=== PATIENT | female | born 1970 | race Caucasian/White ===

== ENCOUNTER 2016-08-08 05:19 | Day surgery (SDC) | payer OTHER ==
[~2016-08-08] VITALS: Ht 147.3 cm; Wt 63.1 kg
[~2016-08-08 05:19] MED LIST: CARI350T29 PO; CHOL50009 PO; GABA300C16 PO; HYDR-3498 PO; MELO-109 PO; METO10TA92 PO; PANT40TA3 PO; [UNRECOGNIZED DRUG - CODE] PO
[2016-08-08 06:26] VITALS: Ht 147.3 cm; Wt 63.1 kg
[2016-08-08 07:19] VITALS: BP 113/80; PULSE 68; RESP 20
[2016-08-08] MEDS ORDERED: FENTAnyl 50 MCG/ML VIAL ONE (07:38)
[2016-08-08] MEDS ORDERED: MIDAZOLAM 1 MG/ML 2 ML INJ ONE ×2 (07:38)
--- NOTE | 2016-08-08 07:58 | GILP ---
DATE OF PROCEDURE: NAME OF PROCEDURE: Esophagogastroduodenoscopy and biopsy. SURGEON: Alexander Spann MD PREOPERATIVE DIAGNOSES: 1. Abdominal pain. 2. Chronic heartburn. POSTOPERATIVE DIAGNOSES: 1. Hiatal hernia. 2. Gastroesophageal reflux disease. 3. Gastritis with erosions. 4. Gastric mucosal biopsies were taken for Helicobacter pylori test. INDICATION FOR THE PROCEDURE: Ms. Siena Vo is a 46-year-old female patient who had upper abdomi nal pain and chronic heartburn, not responding to therapy. The patient was scheduled for endoscopic examination for further evaluation. The procedure and possible complications are well explained to the patient. The patient understood and consented to the procedure. DESCRIPTION OF PROCEDURE: Under the influence of fentanyl and Versed, the gastroscope was carefully introduced into the esophagus, and under direct vision, it was advanced to the stomach and through the pylorus into the duodenal bulb and descending duodenum. FINDINGS: ESOPHAGUS: The patient had hiatal hernia and gastroesophageal reflux disease. STOMACH: She had gastritis with erosions. Gastric mucosal biopsies were taken for H pylori test. DUODENUM: Normal. The patient tolerated the procedure very well and there was no complication from the procedure. At the end of the procedure, she was awake with stable vital signs, and she was discharged home to the care of her family. IMPRESSION: 1. Hiatal hernia. 2. Gastroesophageal reflux disease. 3. Gastritis with erosions. 4. Gastric mucosal biopsies were taken for Helicobacter pylori test. PLAN: 1. Pantoprazole 40 mg p.o. every morning. 2. Zantac 300 mg p.o. at bedtime. 3. Await H pylori test report. Dictated By: ALEXANDER SEWELL/FRIEDA Conf#: [id number] DID#: [id number]
[2016-08-08 08:02] VITALS: BP 99/60; RESP 18
== END 2016-08-08 09:17 | disposition home or self-care (01) ==
LOC: GIL 05:19
PROVIDERS: ATTEND Internal Medicine Gastroenterology
DX: K44.9 Diaphragmatic hernia without obstruction or gangrene (principal); K21.9 Gastro-esophageal reflux disease without esophagitis; K29.60 Other gastritis without bleeding
CPT/HCPCS: 43239; 84703; 87081; J2250; J3010; Z7610

== ENCOUNTER → 2016-08-18 | Outpatient (CLI) | payer OTHER ==
[~2016-08-18] MED LIST changes: -CARI350T29 PO; -HYDR-3498 PO; -METO10TA92 PO; -[UNRECOGNIZED DRUG - CODE] PO
--- NOTE | 2016-08-18 14:31 | RADRPT ---
PROCEDURE: Gastric emptying scan CLINICAL INDICATION: 46 -year-old patient with hiatal hernia, abdominal pain, nausea and vomiting. TECHNIQUE: Following the oral administration of 1.1 mCi of Tc-99m sulfur colloid, labeled to a luly id meal, gastric emptying study was obtained up to 70 minutes post administration of the radiopharma ceutical. COMPARISON: No prior studies. FINDINGS: The stomach is well visualized. The small intestines are identified. There is evidence of normal gastric emptying rate from the start of the study with estimated T1/2 ti me of 81 minutes (normal range is 30 - 90 minutes). There is no evidence of increased activity in the chest to suggest the presence of gastroesophageal reflux. IMPRESSION: Normal gastric emptying rate . RPTAT: HH .Jeanine Marrero MD, MD Date Time Electronically viewed and signed by .Jeanine Marrero MD, on 08/18/2016 14:30 .L/
== END | disposition home or self-care (01) ==
LOC: NUC 10:33
PROVIDERS: ATTEND Surgery Surgical Oncology
DX: K44.9 Diaphragmatic hernia without obstruction or gangrene (principal)
CPT/HCPCS: 78264; A9541

== ENCOUNTER 2016-12-21 10:10 | Inpatient (IN) | payer OTHER ==
[2016-12-20 15:14] VITALS: BMI 29.0
[2016-12-21] VITALS (22 sets, daily range): BP systolic 99–127; BP diastolic 60–84; PULSE 71–95; RESP 12–20; Ht 147.3 cm; Wt 63.0 kg
[~2016-12-21] VITALS: Ht 147.3 cm; Wt 63.0 kg
[~2016-12-21 10:10] MED LIST changes: -MELO-109 PO; +MELO-216 PO; +ROCURONIUM 50 MG INJ ONE
[2016-12-21] MEDS ORDERED: PANT40TA3 PO (10:51)
[2016-12-21] MEDS ORDERED: GABA-526 PO (10:51)
[2016-12-21] MEDS ORDERED: MELO-210 PO (10:51)
[2016-12-21] MEDS ORDERED: NORE-122 PO (10:52)
[2016-12-21] MEDS ORDERED: BUPIVACAINE 0.25% (MPF) 30 ML INJ ONE (12:23)
[2016-12-21] MEDS ORDERED: PROPOFOL 20 ML ONE (13:15)
[2016-12-21] MEDS ORDERED: GLYCOPYRROLATE 0.4 MG INJ ONE ×2 (13:15→14:48)
[2016-12-21] MEDS ORDERED: LIDOCAINE 2% (SDV) 5 ML INJ ONE (13:15)
[2016-12-21] MEDS ORDERED: NEOSTIGMINE 3 MG/3 ML SYRINGE ONE (13:15)
[2016-12-21] MEDS ORDERED: SUCCINYLCHOLINE CHLORIDE 100 MG/5 ML SYG IV ONE (13:15)
[2016-12-21] MEDS ORDERED: ROCURONIUM 50 MG INJ ONE (13:15)
[2016-12-21] MEDS ORDERED: MEPERIDINE 100 MG INJ ONE (13:16)
[2016-12-21] MEDS ORDERED: MEPERIDINE 25 MG INJ IV PRN (13:30)
[2016-12-21] MEDS ORDERED: FENTAnyl 50 MCG/ML VIAL IV PRN ×2 (13:30)
[2016-12-21] MEDS ORDERED: HYDROmorphONE (0.2 MG/ML) 10ML SYG IV PRN ×2 (13:30)
[2016-12-21] MEDS ORDERED: ONDANSETRON 4 MG INJ IV PRN (13:30)
[2016-12-21] MEDS ORDERED: hydrALAzine 20 MG INJ IV PRN (13:30)
[2016-12-21] MEDS ORDERED: METOCLOPRAMIDE 10 MG INJ IV PRN (13:30)
[2016-12-21] MEDS ORDERED: OXYCODONE/ACETAMINOPHEN (5/325) TAB PO PRN ×2 (13:30)
[2016-12-21] MEDS ORDERED: MIDAZOLAM 1 MG/ML 2 ML INJ IV PRN (13:30)
[2016-12-21] MEDS ORDERED: EPHEDrine SULFATE 50 MG/5 ML SYG IV PRN (13:30)
[2016-12-21] MEDS ORDERED: LABETALOL HCL 20MG INJ IV PRN (13:30)
[2016-12-21] MEDS ORDERED: DIPHENHYDRAMINE 50 MG INJ IV PRN (13:30)
[2016-12-21] MEDS ORDERED: POLYMYXIN/BACITRACIN 1L IRRIG ONE (14:41)
[2016-12-21] MEDS ORDERED: CEFAZOLIN 1 GM INJ ONE (14:48)
[2016-12-21] MEDS ORDERED: METOCLOPRAMIDE 10 MG INJ ONE (14:49)
[2016-12-21] MEDS ORDERED: ONDANSETRON 4 MG INJ ONE (14:49)
[2016-12-21] MEDS ORDERED: SOD CHLORIDE 0.9% 1,000 ML IV SCH (15:26)
[2016-12-21] MEDS ORDERED: SUGAMMADEX SODIUM 200 MG/2 ML VIAL IV ONE (15:32)
--- NOTE | 2016-12-21 15:41 | OPR ---
Date/Time of Note Date/Time of Note DATE: 12/21/16 TIME: 15:29 Operative Report Procedure Date: Dec 21, 2016 Preoperative Diagnosis recalcitrant GERD not amenable to PPI therapy Postoperative Diagnosis same Operation Performed 1. laparoscopic 360 fundoplication 2. intraabdominal implantation of biologic matrix mesh 3. therapeutic injection of subcutaneous marcaine cpt code 22169 4. laparoscopic lysis of adhesions Surgeon see signature line Anesthesia Type: general Estimated Blood Loss: 10 - 50 ml's Specimen: none Grafts/Implants: none Complications: no Indications This is a 46-year-old female with recalcitrant GERD that is not amenable to PPI therapy. She underwent studies confirming GERD with a lower esophageal sphincter that is not functioning properly. She has had prior laparoscopic diaphragmatic hernia surgery. She is brought to the OR for a laparoscopic fundoplication with mesh repair. Risks alternatives benefits and percent were discussed the patient. Potential complications include but not limited to bleeding infection chronic pain need for reoperation and possibly were discussed the patient. Patient expresses understanding and consents to the operation. Procedure Description Patient was taken to the OR and prepped and draped in the usual sterile fashion. Surgical timeout was performed. IV antibiotics were given. Left upper periumbilical transverse incision is made with a 15 blade. Using a 12 mm optical trocar optical entry is performed. Pneumoperitoneum is established. Right midclavicular subcostal 5 mm trocar was placed under direct visualization. Left midclavicular subcostal 12 mm optical trocar was placed under direct visualization left upper flank 5 mm optical trocar was placed under direct visualization. midEpigastric 5 mm optical trocar was placed under direct visualization. Using the mid epigastric 5 mm optical trocar position the trocar was removed and a snake liver retractor was placed for visualization. Initial dissection was performed by starting at pars flaccida with harmonic laparoscopic kush. Dissection was taken up to the caudate lobe and more medially to the right brianda. Due to prior intra-abdominal laparoscopic surgery in this region laparoscopic lysis of adhesions was performed for a significant amount of time to allow mobilization of the right and left brianda. The short gastrics were divided using laparoscopic harmonic kush. Creation of the retroesophageal space was performed. Gerry loop was encircled around the esophagus. A 56 bougie was then placed into the esophagus under direct visualization. The fundus was then wrapped around the esophagus posteriorly and shoeshine maneuver was performed. There was no tension. The plication was performed using 3-0 PDS by fixing the fundus to the esophagus to the other side of the fundus. 3-0 silk was used in interrupted fashion to reinforce the lower esophageal sphincter with proximal and distal sutures to the 3-0 PDS. A cell mesh was then placed against the brianda anteriorly with interrupted 2-0 Ethibond for reinforcement. There is good hemostasis of the surgical site. Ports removed under direct visualization. Skin was closed using skin evan. Therapeutic subcu Marcaine was injected throughout the port sites. Dressings were applied. Tuan VIRAMONTES Dec 21, 2016 15:41
[2016-12-21] MEDS: FENTAnyl 50 MCG/ML VIAL IV PRN ×4 (15:52→16:18)
[2016-12-21] MEDS: HYDROmorphONE (0.2 MG/ML) 10ML SYG IV PRN ×2 (16:48→17:05)
[2016-12-21] MEDS ORDERED: D5-NS + KCL 20 MEQ 1,000 ML IV SCH (17:00)
[2016-12-21] MEDS ORDERED: D5W-0.45 NACL + KCL 20 MEQ 1,000 ML IV ONE (17:16)
[2016-12-21] MEDS: D5W-0.45 NACL + KCL 20 MEQ 1,000 ML IV SCH (17:54)
[2016-12-21] MEDS: CEFAZOLIN 2 GM/50 ML (PMX) 50 ML IVPB SCH (18:12)
--- NOTE | 2016-12-21 18:22 | HP ---
DATE OF ADMISSION: 12/21/2016 HISTORY OF PRESENT ILLNESS: The patient is a 46-year-old female with persistent GERD, not responding to medical therapy. 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 The patient also with history of prior laparoscopic diaphragmatic surgery repair. The patient was evaluated by Dr. Aguilera in general surgery consultation, and patient was admitted to the hospital and underwent laparoscopic fundoplication with mesh repair. Postoperatively, the patient experienced significant pain, and patient will be admitted for further evaluation and management. PAST MEDICAL HISTORY: Positive for recalcitrant GERD and neuropathy. The patient denies having any other chronic conditions. PAST SURGICAL HISTORY: Status post hernia repair. Status post cholecystectomy, status post right total knee replacement, and status post left shoulder surgery. FAMILY HISTORY: Noncontributory. SOCIAL HISTORY: The patient lives at home with family. Patient denies any alcohol use. Denies any tobacco use. Denies any illicit drug use. ALLERGIES: NO KNOWN ALLERGIES. MEDICATIONS: 1. Gabapentin. 2. Mobic. 3. Protonix. REVIEW OF SYSTEMS: A 12-point review of system is negative, unless mentioned in HPI. PHYSICAL EXAMINATION: GENERAL: Well-developed, well-nourished female, currently is awake and alert. VITAL SIGNS: Temperature 98.2, pulse 80, blood pressure 116/73, respiratory rate 14, and oxygen saturation 100 percent on room air. HEENT: Head is atraumatic and normocephalic. Pupils are equal, round, and reactive to light and accommodation. Oral mucosa is pink and moist. NECK: Supple. No cervical lymphadenopathy. No thyromegaly. CHEST: Lungs are clear bilaterally. There are no rhonchi or wheezes noted. CARDIOVASCULAR: Normal S1, S2. No murmurs, gallops, clicks, or rubs noted. ABDOMEN: Status post surgery with laparoscopic incisions. Bowel sounds are hypoactive. EXTREMITIES: No edema, clubbing, or cyanosis. Pulses are felt bilaterally 2+. SKIN: No rash or petechiae noted. NEUROLOGICAL: The patient is awake, alert, and oriented x4. No focal deficits are noted. The patient moves all extremities. LABORATORY DATA: Prior to surgery, CBC: White blood cells of 8.1, hemoglobin 13.1, hematocrit 37.7, platelets 299. Comprehensive metabolic panel, glucose 116. Sodium is 142, potassium 3.8, chloride 106, carbon dioxide 26, calcium 9.2. BUN is 10, creatinine 0.72. AST is 14, ALT 7. INR is 1.06. ASSESSMENT AND PLAN: 1. Recalcitrant gastroesophageal reflux disease, not amendable to proton pump inhibitor therapy. 2. Status post laparoscopic fundoplication. 3. Intra-abdominal implantation of biologic matrix mesh. Continue postoperative antibiotics. Continue morphine p.r.n. for pain. Zofran p.r.n. for nausea. Continue IV fluids. Keep patient NPO. Follow up surgical recommendation 4. Neuropathy. Will resume gabapentin when patient is able to take p.o. Continue sequential compression device for deep venous thrombosis prophylaxis. Monitor electrolytes. Further recommendations based on clinical course. Plan of care discussed with Dr. Henriquez. Dictated by Alena Camara NP Dictated By: Faizan Henriquez MD /eli/momo /Document#: [id number]
[2016-12-21 19:04] LABS: BASOPHILS % 0.2 % (0.0-2.0); HEMATOCRIT 37.1 % (37.0-47.0); HEMOGLOBIN 12.2 g/dl (12.0-16.0); LYMPHOCYTES # 1.6 10^3/ul (0.8-2.9); LYMPHOCYTES % 8.8 % (15.0-51.0); MEAN CORPUSCULAR HEMOGLOBIN 30.3 pg (29.0-33.0); MEAN CORPUSCULAR HGB CONC 32.9 g/dl (32.0-37.0); MEAN CORPUSCULAR VOLUME 92.3 fl (82.0-101.0); MEAN PLATELET VOLUME 10.5 fl (7.4-10.4); MONOCYTES % 5.7 % (0.0-11.0); NEUTROPHIL # 15.1 10^3/ul (1.6-7.5); NEUTROPHILS % 84.7 % (39.0-77.0); PLATELET COUNT 240 10^3/UL (140-415); RED BLOOD COUNT 4.02 10^6/ul (4.20-5.40); RED CELL DISTRIBUTION WIDTH 13.4 % (11.5-14.5); WHITE BLOOD COUNT 17.9 10^3/ul (4.8-10.8)
[2016-12-21 19:09] LABS: HOLD TRANSMISSIONS 1
[2016-12-21 19:30] LABS: ALBUMIN 3.9 g/dl (3.3-4.9); ALBUMIN/GLOBULIN RATIO 1.34; BILIRUBIN,INDIRECT 0.5 mg/dl (0-1.1); BILIRUBIN,TOTAL 0.5 mg/dl (0.2-1.3); TOTAL PROTEIN 6.8 g/dl (6.1-8.1)
[2016-12-21 19:34] LABS: CALCIUM 8.4 mg/dl (8.4-10.2); CREATININE 0.62 mg/dl (0.44-1.00); POTASSIUM 4.1 mmol/L (3.5-5.1)
[2016-12-21] MEDS: morphine 2 MG INJ IV PRN (20:35)
[2016-12-21] MEDS: ONDANSETRON 4 MG INJ IV PRN (21:41)
[2016-12-22] MEDS: morphine 2 MG INJ IV PRN ×3 (00:24→05:34)
[2016-12-22 00:25] VITALS: BP 120/70; PULSE 89; RESP 18
[2016-12-22] MEDS: CEFAZOLIN 2 GM/50 ML (PMX) 50 ML IVPB SCH ×2 (00:30→06:44)
[2016-12-22] MEDS: D5W-0.45 NACL + KCL 20 MEQ 1,000 ML IV SCH ×3 (03:36→23:43)
[2016-12-22 05:09] LABS: BASOPHILS % 0.2 % (0.0-2.0); EOSINOPHILS # 0.1 10^3/ul (0.0-0.5); EOSINOPHILS % 0.8 % (0.0-7.0); HEMATOCRIT 33.5 % (37.0-47.0); HEMOGLOBIN 11.2 g/dl (12.0-16.0); LYMPHOCYTES # 1.1 10^3/ul (0.8-2.9); LYMPHOCYTES % 7.5 % (15.0-51.0); MEAN CORPUSCULAR HEMOGLOBIN 30.4 pg (29.0-33.0); MEAN CORPUSCULAR HGB CONC 33.4 g/dl (32.0-37.0); MEAN CORPUSCULAR VOLUME 90.8 fl (82.0-101.0); MEAN PLATELET VOLUME 10.3 fl (7.4-10.4); MONOCYTE # 1.1 10^3/ul (0.3-0.9); MONOCYTES % 7.8 % (0.0-11.0); NEUTROPHIL # 11.8 10^3/ul (1.6-7.5); NEUTROPHILS % 83.3 % (39.0-77.0); PLATELET COUNT 217 10^3/UL (140-415); RED BLOOD COUNT 3.69 10^6/ul (4.20-5.40); RED CELL DISTRIBUTION WIDTH 13.3 % (11.5-14.5); WHITE BLOOD COUNT 14.2 10^3/ul (4.8-10.8)
[2016-12-22 06:18] LABS: ALBUMIN 3.5 g/dl (3.3-4.9); ALBUMIN/GLOBULIN RATIO 1.29; BILIRUBIN,INDIRECT 0.7 mg/dl (0-1.1); BILIRUBIN,TOTAL 0.7 mg/dl (0.2-1.3); CALCIUM 8.1 mg/dl (8.4-10.2); CREATININE 0.62 mg/dl (0.44-1.00); TOTAL PROTEIN 6.2 g/dl (6.1-8.1)
[2016-12-22] MEDS: DIPHENHYDRAMINE 50 MG INJ IV PRN ×2 (06:42→19:40)
--- NOTE | 2016-12-22 07:53 | PN ---
Date/Time of Note Date/Time of Note DATE: 12/22/16 TIME: 07:52 Assessment/Plan VTE Prophylaxis VTE Prophylaxis Intervention: SCD's Lines/Catheters IV Catheter Type (from Nrsg): Peripheral IV Urinary Cath still in place: Yes Reason Cath still needed: other (indicate) Assessment/Plan Chief Complaint/Hosp Course s/p lap colette fundoplication for recalcitrant GERD Problems: Assessment/Plan UGI today then if everything is ok start clears Subjective 24 Hr Interval Summary Free Text/Dictation doing well, no nausea no vomiting overnight Exam/Review of Systems Vital Signs Vitals Vital Signs Date Time Temp Pulse Resp B/P Pulse Ox O2 Delivery O2 Flow Rate FiO2 12/22/16 00:25 98.4 89 18 120/70 97 Room Air Intake and Output 12/21/16 12/21/16 12/22/16 15:00 23:00 07:00 Intake Total 1400 ml 910 ml Output Total 10 ml 1100 ml Balance 1390 ml -190 ml Exam c/d/i Results Result Diagram: 12/22/16 0431 12/22/16 0431 Results 24 hrs Laboratory Tests Test 12/21/16 18:12 12/22/16 04:31 White Blood Count 17.9 #H 14.2 #H Red Blood Count 4.02 L 3.69 L Hemoglobin 12.2 11.2 L Hematocrit 37.1 33.5 L Mean Corpuscular Volume 92.3 90.8 Mean Corpuscular Hemoglobin 30.3 30.4 Mean Corpuscular Hemoglobin Concent 32.9 33.4 Red Cell Distribution Width 13.4 13.3 Platelet Count 240 217 Mean Platelet Volume 10.5 #H 10.3 Neutrophils % 84.7 H 83.3 H Lymphocytes % 8.8 L 7.5 L Monocytes % 5.7 7.8 Eosinophils % 0.0 0.8 Basophils % 0.2 0.2 Nucleated Red Blood Cells % 0.0 0.0 Neutrophils # 15.1 H 11.8 H Lymphocytes # 1.6 1.1 Monocytes # 1.0 H 1.1 H Eosinophils # 0.0 0.1 Basophils # 0.0 0.0 Nucleated Red Blood Cells # 0.0 0.0 CBC Results Faxed/Phoned 1 *H Sodium Level 142 139 Potassium Level 4.1 4.0 Chloride Level 109 108 Carbon Dioxide Level 22 25 Anion Gap 15 10 # Blood Urea Nitrogen 10 6 L Creatinine 0.62 0.62 Glucose Level 96 146 # Calcium Level 8.4 8.1 L Total Bilirubin 0.5 0.7 Direct Bilirubin 0.00 0.00 Indirect Bilirubin 0.5 0.7 Aspartate Amino Transf (AST/SGOT) 130 H 93 H Alanine Aminotransferase (ALT/SGPT) 114 H 86 H Alkaline Phosphatase 59 44 Total Protein 6.8 6.2 Albumin 3.9 3.5 Globulin 2.90 2.70 Albumin/Globulin Ratio 1.34 1.29 Medications Medications Current Medications Cefazolin Sodium/ Dextrose (Ancef 2 Gm/50 ml (Pmx)) 50 ml @ 100 mls/hr Q8H IVPB Last administered on 12/22/16 06:44; Admin Dose 100 MLS/HR; Start at 15:30; Stop 12/22/16 at 15:29 Morphine Sulfate 2 mg 2 mg Q2H PRN IV PAIN LEVEL 6-10 Last administered on 12/22 05:34; Admin Dose 2 MG; Start 12/21/16 at 15:30 Potassium Chloride/Dextrose/ Sod Cl (D5-1/2ns + KCl 20 Meq) 1,000 ml @ 100 mls/ hr Q10H IV Last administered on 12/22/16 03:36; Admin Dose 100 MLS/HR; Start 12/21/16 at 17:00 Ondansetron HCl (Zofran Inj) 4 mg Q6H PRN IV NAUSEA AND/OR VOMITING Last administered on 12/21/16 21:41; Admin Dose 4 MG; Start 12/21/16 at 21:30 Diphenhydramine HCl (Benadryl) 25 mg Q6H PRN IV ITCHING Last administered on 06:42; Admin Dose 25 MG; Start 12/22/16 at 07:00 Tuan VIRAMONTES Dec 22, 2016 07:53
[2016-12-22 08:05] VITALS: BP 100/62; RESP 16
[2016-12-22] MEDS: HYDROmorphONE 1 MG/ML SYG IV PRN ×4 (08:47→21:28)
[2016-12-22] MEDS: ONDANSETRON 4 MG INJ IV PRN ×2 (08:51→14:41)
[2016-12-22] MEDS ORDERED: DIATR MEGLU/DIATRIZOATE SODIUM 120 ML BTL ONE (11:43)
--- NOTE | 2016-12-22 12:35 | RADRPT ---
PROCEDURE: Upper GI series. CLINICAL INDICATION: Recent surgery with Alyce fundoplication, evaluate abdominal pain, nausea an d vomiting TECHNIQUE: Gastroview was administered orally and several spot and overhead radiographs were obtai norma. 62 fluoroscopic images were obtained. Fluoroscopic time was 0.7 minutes. COMPARISON: No prior study is available for comparison. FINDINGS: Student Affairs Dean image of the abdomen demonstrates surgical clips in the upper variant. There is a nonspecific bowel gas pattern. The lung bases are clear. There is no evidence of aspiration. Esophageal motility is normal. There is no esophageal mass, ulcer, or stricture. Contrast courses beyond the GE junction into the stomach past the patients Alyce fundoplication wit hout difficulty. There is no evidence of high-grade stricture. There is no evidence of contrast leak . IMPRESSION: 1. The patient is status post Alyce fundoplication. No evidence of stricture or contrast leak. RPTAT: UU .Jluis Maldonado MD, MD Date Time Electronically viewed and signed by .Jluis Maldonado MD, on 12/22/2016 12:34 .K/
[2016-12-22 15:08] VITALS: BP 118/67; RESP 16
--- NOTE | 2016-12-22 18:46 | PN ---
Date/Time of Note Date/Time of Note DATE: 12/22/16 TIME: 18:40 Assessment/Plan VTE Prophylaxis VTE Prophylaxis Intervention: other Lines/Catheters IV Catheter Type (from Nrsg): Peripheral IV Urinary Cath still in place: Yes Reason Cath still needed: urinary retention Assessment/Plan Assessment/Plan 1. Recalcitrant gastroesophageal reflux disease, not amendable to proton pump inhibitor therapy. 2. Status post laparoscopic fundoplication. 3. Intra-abdominal implantation of biologic matrix mesh. - per surgery- clear liquid diet - Continue postoperative antibiotics, morphine p.r.n. for pain. - Zofran p.r.n. for nausea. Continue IV fluids. 4. Neuropathy. - cont gabapentin 5. Sequential compression device for deep venous thrombosis prophylaxis. Monitor electrolytes. Further recommendations based on clinical course. Plan of care discussed with Dr. Henriquez. Subjective 24 Hr Interval Summary Free Text/Dictation C/O nausea- none at present,taking sips of clear liquid, sp upper GI today. Respiratory: no complaints Cardiovascular: no complaints Gastrointestinal: no complaints Genitourinary: no complaints Exam/Review of Systems Vital Signs Vitals Vital Signs Date Time Temp Pulse Resp B/P Pulse Ox O2 Delivery O2 Flow Rate FiO2 12/22/16 15:08 97.9 67 16 118/67 97 12/22/16 00:25 Room Air Intake and Output 12/21/16 12/21/16 12/22/16 15:00 23:00 07:00 Intake Total 1400 ml 910 ml Output Total 10 ml 1100 ml Balance 1390 ml -190 ml Exam Constitutional: alert, oriented, well developed Respiratory: clear to auscultation, normal air movement Cardiovascular: nl pulses, regular rate and rhythm Gastrointestinal: soft Musculoskeletal: nl extremities to inspection Extremities: normal pulses Neurological: nl mental status, nl speech Results Result Diagram: 12/22/16 0431 12/22/16 0431 Results 24 hrs Laboratory Tests Test 12/22/16 04:31 White Blood Count 14.2 #H Red Blood Count 3.69 L Hemoglobin 11.2 L Hematocrit 33.5 L Mean Corpuscular Volume 90.8 Mean Corpuscular Hemoglobin 30.4 Mean Corpuscular Hemoglobin Concent 33.4 Red Cell Distribution Width 13.3 Platelet Count 217 Mean Platelet Volume 10.3 Neutrophils % 83.3 H Lymphocytes % 7.5 L Monocytes % 7.8 Eosinophils % 0.8 Basophils % 0.2 Nucleated Red Blood Cells % 0.0 Neutrophils # 11.8 H Lymphocytes # 1.1 Monocytes # 1.1 H Eosinophils # 0.1 Basophils # 0.0 Nucleated Red Blood Cells # 0.0 Sodium Level 139 Potassium Level 4.0 Chloride Level 108 Carbon Dioxide Level 25 Anion Gap 10 # Blood Urea Nitrogen 6 L Creatinine 0.62 Glucose Level 146 # Calcium Level 8.1 L Total Bilirubin 0.7 Direct Bilirubin 0.00 Indirect Bilirubin 0.7 Aspartate Amino Transf (AST/SGOT) 93 H Alanine Aminotransferase (ALT/SGPT) 86 H Alkaline Phosphatase 44 Total Protein 6.2 Albumin 3.5 Globulin 2.70 Albumin/Globulin Ratio 1.29 Medications Medications Current Medications Potassium Chloride/Dextrose/ Sod Cl (D5-1/2ns + KCl 20 Meq) 1,000 ml @ 100 mls/ hr Q10H IV Last administered on 12/22/16 14:43; Admin Dose 100 MLS/HR; Start 12/21/16 at 17:00 Ondansetron HCl (Zofran Inj) 4 mg Q6H PRN IV NAUSEA AND/OR VOMITING Last administered on 12/22/16 14:41; Admin Dose 4 MG; Start 12/21/16 at 21:30 Diphenhydramine HCl (Benadryl) 25 mg Q6H PRN IV ITCHING Last administered on 06:42; Admin Dose 25 MG; Start 12/22/16 at 07:00 Hydromorphone HCl (Dilaudid) 0.5 mg Q4H PRN IV PAIN Last administered on 16:52; Admin Dose 0.5 MG; Start 12/22/16 at 08:00 MAGDIEL COTTRELL Dec 22, 2016 18:46
[2016-12-22 20:29] VITALS: BP 114/72; RESP 20
[2016-12-23 02:10] VITALS: BP 115/73; RESP 18
[2016-12-23] MEDS: HYDROmorphONE 1 MG/ML SYG IV PRN ×5 (02:13→19:41)
[2016-12-23 06:15] LABS: BASOPHILS % 0.2 % (0.0-2.0); EOSINOPHILS # 0.5 10^3/ul (0.0-0.5); EOSINOPHILS % 4.7 % (0.0-7.0); HEMOGLOBIN 10.8 g/dl (12.0-16.0); LYMPHOCYTES # 1.9 10^3/ul (0.8-2.9); LYMPHOCYTES % 16.7 % (15.0-51.0); MEAN CORPUSCULAR HEMOGLOBIN 30.3 pg (29.0-33.0); MEAN CORPUSCULAR HGB CONC 32.7 g/dl (32.0-37.0); MEAN CORPUSCULAR VOLUME 92.7 fl (82.0-101.0); MEAN PLATELET VOLUME 10.5 fl (7.4-10.4); MONOCYTES % 8.6 % (0.0-11.0); NEUTROPHIL # 7.8 10^3/ul (1.6-7.5); NEUTROPHILS % 69.4 % (39.0-77.0); PLATELET COUNT 204 10^3/UL (140-415); RED BLOOD COUNT 3.56 10^6/ul (4.20-5.40); RED CELL DISTRIBUTION WIDTH 13.9 % (11.5-14.5); WHITE BLOOD COUNT 11.2 10^3/ul (4.8-10.8)
[2016-12-23 07:00] LABS: CALCIUM 7.9 mg/dl (8.4-10.2); CREATININE 0.65 mg/dl (0.44-1.00); POTASSIUM 3.9 mmol/L (3.5-5.1)
[2016-12-23 08:30] VITALS: BP 101/52; RESP 18
[2016-12-23] MEDS: D5W-0.45 NACL + KCL 20 MEQ 1,000 ML IV SCH ×2 (10:33→19:00)
--- NOTE | 2016-12-23 12:37 | PN ---
Date/Time of Note Date/Time of Note DATE: 12/23/16 TIME: 12:36 Assessment/Plan VTE Prophylaxis VTE Prophylaxis Intervention: SCD's Lines/Catheters [facility] Peripheral IV Urinary Cath still in place: No Assessment/Plan Chief Complaint/Hosp Course s/p lap colette fundoplication for recalcitrant GERD Problems: Assessment/Plan had some emesis and nausea as expected but also some fevers start abx continue only clears Subjective 24 Hr Interval Summary Free Text/Dictation UGI no leak, however some fevers and nausea and emesis Exam/Review of Systems Vital Signs Vitals Vital Signs Date Time Temp Pulse Resp B/P Pulse Ox O2 Delivery O2 Flow Rate FiO2 12/23/16 08:30 99.0 65 18 101/52 95 12/22/16 00:25 Room Air Intake and Output 12/22/16 12/22/16 12/23/16 14:59 22:59 06:59 Intake Total 1050 ml 275 ml 808 ml Output Total 350 ml Balance 1050 ml -75 ml 808 ml Exam c/d/i Results Result Diagram: 12/23/16 0507 12/23/16 0507 Results 24 hrs Laboratory Tests Test 12/23/16 05:07 White Blood Count 11.2 #H Red Blood Count 3.56 L Hemoglobin 10.8 L Hematocrit 33.0 L Mean Corpuscular Volume 92.7 Mean Corpuscular Hemoglobin 30.3 Mean Corpuscular Hemoglobin Concent 32.7 Red Cell Distribution Width 13.9 Platelet Count 204 Mean Platelet Volume 10.5 H Neutrophils % 69.4 Lymphocytes % 16.7 Monocytes % 8.6 Eosinophils % 4.7 Basophils % 0.2 Nucleated Red Blood Cells % 0.0 Neutrophils # 7.8 H Lymphocytes # 1.9 Monocytes # 1.0 H Eosinophils # 0.5 Basophils # 0.0 Nucleated Red Blood Cells # 0.0 Sodium Level 138 Potassium Level 3.9 Chloride Level 105 Carbon Dioxide Level 28 Anion Gap 9 Blood Urea Nitrogen 4 L Creatinine 0.65 Glucose Level 122 Calcium Level 7.9 L Medications Medications Current Medications Potassium Chloride/Dextrose/ Sod Cl (D5-1/2ns + KCl 20 Meq) 1,000 ml @ 100 mls/ hr Q10H IV Last administered on 12/23/16t 10:33; Admin Dose 100 MLS/HR; Start 12/21/16 at 17:00 Ondansetron HCl (Zofran Inj) 4 mg Q6H PRN IV NAUSEA AND/OR VOMITING Last administered on 12/22/16 14:41; Admin Dose 4 MG; Start 12/21/16 at 21:30 Diphenhydramine HCl (Benadryl) 25 mg Q6H PRN IV ITCHING Last administered on 19:40; Admin Dose 25 MG; Start 12/22/16 at 07:00 Hydromorphone HCl (Dilaudid) 0.5 mg Q4H PRN IV PAIN Last administered on 10:27; Admin Dose 0.5 MG; Start 12/22/16 at 08:00 Tuan VIRAMONTES Dec 23, 2016 12:37
[2016-12-23] MEDS: AMPICILLIN/SULB 3 GM/NS (PMX) 100 ML IVPB SCH ×2 (13:58→18:03)
[2016-12-23 15:15] VITALS: BP 123/64; RESP 18
[2016-12-23] MEDS: ONDANSETRON 4 MG INJ IV PRN ×2 (15:17→19:40)
[2016-12-23] MEDS: ACETAMINOPHEN 650MG/20.3ML CUP PO PRN (15:22)
--- NOTE | 2016-12-23 15:52 | PN ---
Date/Time of Note Date/Time of Note DATE: 12/23/16 TIME: 15:46 Assessment/Plan VTE Prophylaxis VTE Prophylaxis Intervention: SCD's Lines/Catheters IV Catheter Type (from Nrs): Peripheral IV Central line still needed: Yes Urinary Cath still in place: No Assessment/Plan Chief Complaint/Hosp Course Patient was low-grade fever overnight, continue Unasyn. Patient's complains of pain which is better controlled with Dilaudid. ASSESSMENT AND PLAN: - Recalcitrant gastroesophageal reflux disease, not amendable to proton pump inhibitor therapy. Status post laparoscopic fundoplication. Intra-abdominal implantation of biologic matrix mesh. Continue postoperative antibiotics. Continue liquid diet for 2 weeks. Follow-up surgical recommendation. Continue Dilaudid as needed for pain and Zofran as needed for nausea. - Neuropathy. Will resume gabapentin when patient is able to take p.o. Further recommendations based on clinical course. Plan of care discussed with Dr. Henriquez. Problems: Exam/Review of Systems Vital Signs Vitals Vital Signs Date Time Temp Pulse Resp B/P Pulse Ox O2 Delivery O2 Flow Rate FiO2 12/23/16 15:15 99.4 54 18 123/64 92 12/22/16 00:25 Room Air Intake and Output 12/22/16 12/22/16 12/23/16 15:00 23:00 07:00 Intake Total 1050 ml 275 ml 808 ml Output Total 350 ml Balance 1050 ml -75 ml 808 ml Exam Constitutional: alert Neck: supple Cardiovascular: nl pulses Gastrointestinal: non-tender, other (S/P surgery), soft Musculoskeletal: nl extremities to inspection Extremities: normal pulses Results Result Diagram: 12/23/16 0507 12/23/16 0507 Results 24 hrs Laboratory Tests Test 12/23/16 05:07 White Blood Count 11.2 #H Red Blood Count 3.56 L Hemoglobin 10.8 L Hematocrit 33.0 L Mean Corpuscular Volume 92.7 Mean Corpuscular Hemoglobin 30.3 Mean Corpuscular Hemoglobin Concent 32.7 Red Cell Distribution Width 13.9 Platelet Count 204 Mean Platelet Volume 10.5 H Neutrophils % 69.4 Lymphocytes % 16.7 Monocytes % 8.6 Eosinophils % 4.7 Basophils % 0.2 Nucleated Red Blood Cells % 0.0 Neutrophils # 7.8 H Lymphocytes # 1.9 Monocytes # 1.0 H Eosinophils # 0.5 Basophils # 0.0 Nucleated Red Blood Cells # 0.0 Sodium Level 138 Potassium Level 3.9 Chloride Level 105 Carbon Dioxide Level 28 Anion Gap 9 Blood Urea Nitrogen 4 L Creatinine 0.65 Glucose Level 122 Calcium Level 7.9 L Medications Medications Current Medications Potassium Chloride/Dextrose/ Sod Cl (D5-1/2ns + KCl 20 Meq) 1,000 ml @ 100 mls/ hr Q10H IV Last administered on 12/23/16 10:33; Admin Dose 100 MLS/HR; Start 12/21/16 at 17:00 Ondansetron HCl (Zofran Inj) 4 mg Q6H PRN IV NAUSEA AND/OR VOMITING Last administered on 12/23/16 15:17; Admin Dose 4 MG; Start 12/21/16 at 21:30 Diphenhydramine HCl (Benadryl) 25 mg Q6H PRN IV ITCHING Last administered on 19:40; Admin Dose 25 MG; Start 12/22/16 at 07:00 Hydromorphone HCl 0.5 mg 0.5 mg Q4H PRN IV PAIN Last administered on 12/23/16 15:14; Admin Dose 0.5 MG; Start 12/22/16 at 08:00 Ampicillin Sodium/ Sulbactam Sodium (Unasyn 3gm/NS (Pmx)) 100 ml @ 100 mls/hr Q6 IVPB Last administered on 12/23/16 13:58; Admin Dose 100 MLS/HR; Start at 13:30; Stop 12/26/16 at 13:29 Acetaminophen (Tylenol Liquid) 650 mg Q6 PRN PO PAIN AND OR ELEVATED TEMP Last administered on 12/23/16 15:22; Admin Dose 650 MG; Start 12/23/16 at 15:00 REAL COKER Dec 23, 2016 15:52
[2016-12-23 19:47] VITALS: BP 105/75; PULSE 86; RESP 18
[2016-12-24] MEDS: AMPICILLIN/SULB 3 GM/NS (PMX) 100 ML IVPB SCH ×5 (00:23→23:56)
[2016-12-24] MEDS: HYDROmorphONE 1 MG/ML SYG IV PRN ×5 (00:24→20:46)
[2016-12-24 02:15] VITALS: BP 106/70; RESP 18
[2016-12-24] MEDS: D5W-0.45 NACL + KCL 20 MEQ 1,000 ML IV SCH ×2 (04:52→15:00)
[2016-12-24 05:40] LABS: BASOPHILS % 0.1 % (0.0-2.0); EOSINOPHILS # 0.4 10^3/ul (0.0-0.5); EOSINOPHILS % 4.8 % (0.0-7.0); HEMATOCRIT 29.7 % (37.0-47.0); LYMPHOCYTES # 1.9 10^3/ul (0.8-2.9); LYMPHOCYTES % 24.4 % (15.0-51.0); MEAN CORPUSCULAR HEMOGLOBIN 30.9 pg (29.0-33.0); MEAN CORPUSCULAR HGB CONC 33.7 g/dl (32.0-37.0); MEAN CORPUSCULAR VOLUME 91.7 fl (82.0-101.0); MEAN PLATELET VOLUME 10.2 fl (7.4-10.4); MONOCYTE # 0.7 10^3/ul (0.3-0.9); MONOCYTES % 9.4 % (0.0-11.0); NEUTROPHIL # 4.8 10^3/ul (1.6-7.5); PLATELET COUNT 200 10^3/UL (140-415); RED BLOOD COUNT 3.24 10^6/ul (4.20-5.40); RED CELL DISTRIBUTION WIDTH 13.2 % (11.5-14.5); WHITE BLOOD COUNT 7.8 10^3/ul (4.8-10.8)
[2016-12-24 06:20] LABS: CALCIUM 8.1 mg/dl (8.4-10.2); CREATININE 0.55 mg/dl (0.44-1.00); POTASSIUM 3.7 mmol/L (3.5-5.1)
[2016-12-24 07:51] VITALS: BP 104/66; RESP 15
[2016-12-24] MEDS: ACETAMINOPHEN 650MG/20.3ML CUP PO PRN (09:49)
[2016-12-24] MEDS: ONDANSETRON 4 MG INJ IV PRN (12:53)
[2016-12-24 14:06] VITALS: BP 116/73; RESP 16
--- NOTE | 2016-12-24 15:49 | PN ---
Date/Time of Note Date/Time of Note DATE: 12/24/16 TIME: 15:43 Assessment/Plan VTE Prophylaxis VTE Prophylaxis Intervention: SCD's Lines/Catheters IV Catheter Type (from Nrsg): Peripheral IV Urinary Cath still in place: No Assessment/Plan Assessment/Plan - Recalcitrant gastroesophageal reflux disease, not amendable to proton pump inhibitor therapy. - Status post laparoscopic fundoplication. Intra-abdominal implantation of biologic matrix mesh. - surgical recommendation. - Continue postoperative antibiotics. - Continue liquid diet for 2 weeks. - Dilaudid as needed for pain and Zofran as needed for nausea. - Neuropathy. Will resume gabapentin when patient is able to take p.o. Further recommendations based on clinical course. Plan of care discussed with Dr. Henriquez. Subjective 24 Hr Interval Summary Free Text/Dictation c/o abdominal pain, better with pain med, liquid diet for 2 weeks- surgery follows, dw staff Respiratory: no complaints Cardiovascular: no complaints Gastrointestinal: pain Genitourinary: no complaints Musculoskeletal: no complaints Exam/Review of Systems Vital Signs Vitals Vital Signs Date Time Temp Pulse Resp B/P Pulse Ox O2 Delivery O2 Flow Rate FiO2 12/24/16 14:06 97.9 67 16 116/73 98 12/23/16 19:47 Room Air Intake and Output 12/23/16 12/23/16 12/24/16 15:00 23:00 07:00 Intake Total 572 ml 1510 ml 1150 ml Output Total 1200 ml Balance 572 ml 1510 ml -50 ml Exam Constitutional: alert, well developed Respiratory: diminished breath sounds, normal air movement Cardiovascular: nl pulses, regular rate and rhythm Gastrointestinal: soft, tender (surgical abdomen) Musculoskeletal: nl extremities to inspection Results Result Diagram: 12/24/16 0442 12/24/162 Results 24 hrs Laboratory Tests Test 12/24/16 04:42 White Blood Count 7.8 # Red Blood Count 3.24 L Hemoglobin 10.0 L Hematocrit 29.7 L Mean Corpuscular Volume 91.7 Mean Corpuscular Hemoglobin 30.9 Mean Corpuscular Hemoglobin Concent 33.7 Red Cell Distribution Width 13.2 Platelet Count 200 Mean Platelet Volume 10.2 Neutrophils % 61.0 Lymphocytes % 24.4 Monocytes % 9.4 Eosinophils % 4.8 Basophils % 0.1 Nucleated Red Blood Cells % 0.0 Neutrophils # 4.8 Lymphocytes # 1.9 Monocytes # 0.7 Eosinophils # 0.4 Basophils # 0.0 Nucleated Red Blood Cells # 0.0 Sodium Level 140 Potassium Level 3.7 Chloride Level 107 Carbon Dioxide Level 28 Anion Gap 9 Blood Urea Nitrogen 2 L Creatinine 0.55 Glucose Level 98 Calcium Level 8.1 L Medications Medications Current Medications Potassium Chloride/Dextrose/ Sod Cl (D5-1/2ns + KCl 20 Meq) 1,000 ml @ 100 mls/ hr Q10H IV Last administered on 12/24/16 04:52; Admin Dose 100 MLS/HR; Start 12/21/16 at 17:00 Ondansetron HCl (Zofran Inj) 4 mg Q6H PRN IV NAUSEA AND/OR VOMITING Last administered on 12/24/16 12:53; Admin Dose 4 MG; Start 12/21/16 at 21:30 Diphenhydramine HCl (Benadryl) 25 mg Q6H PRN IV ITCHING Last administered on 19:40; Admin Dose 25 MG; Start 12/22/16 at 07:00 Hydromorphone HCl 0.5 mg 0.5 mg Q4H PRN IV PAIN Last administered on 12/24/16 09:50; Admin Dose 0.5 MG; Start 12/22/16 at 08:00 Ampicillin Sodium/ Sulbactam Sodium (Unasyn 3gm/NS (Pmx)) 100 ml @ 100 mls/hr Q6 IVPB Last administered on 12/24/16 11:42; Admin Dose 100 MLS/HR; Start at 13:30; Stop 12/26/16 at 13:29 Acetaminophen (Tylenol Liquid) 650 mg Q6 PRN PO PAIN AND OR ELEVATED TEMP Last administered on 12/24/16 09:49; Admin Dose 650 MG; Start 12/23/16 at 15:00 MAGDIEL COTTRELL Dec 24, 2016 15:48
[2016-12-24 19:30] VITALS: BP 124/82; RESP 18
[2016-12-24 20:03] VITALS: BP 110/70; PULSE 74; RESP 18
[2016-12-25] MEDS: D5W-0.45 NACL + KCL 20 MEQ 1,000 ML IV SCH ×2 (01:08→11:00)
[2016-12-25] MEDS: HYDROmorphONE 1 MG/ML SYG IV PRN ×4 (01:08→19:51)
[2016-12-25 02:00] VITALS: BP 105/73; RESP 18
[2016-12-25] MEDS: ONDANSETRON 4 MG INJ IV PRN ×2 (02:52→10:26)
[2016-12-25] MEDS: AMPICILLIN/SULB 3 GM/NS (PMX) 100 ML IVPB SCH ×3 (05:29→18:24)
[2016-12-25 05:31] LABS: BASOPHILS % 0.2 % (0.0-2.0); EOSINOPHILS # 0.5 10^3/ul (0.0-0.5); EOSINOPHILS % 6.5 % (0.0-7.0); HEMOGLOBIN 10.3 g/dl (12.0-16.0); LYMPHOCYTES # 1.6 10^3/ul (0.8-2.9); LYMPHOCYTES % 19.4 % (15.0-51.0); MEAN CORPUSCULAR HEMOGLOBIN 30.9 pg (29.0-33.0); MEAN CORPUSCULAR HGB CONC 34.3 g/dl (32.0-37.0); MEAN CORPUSCULAR VOLUME 90.1 fl (82.0-101.0); MONOCYTE # 0.6 10^3/ul (0.3-0.9); NEUTROPHIL # 5.3 10^3/ul (1.6-7.5); NEUTROPHILS % 65.7 % (39.0-77.0); PLATELET COUNT 232 10^3/UL (140-415); RED BLOOD COUNT 3.33 10^6/ul (4.20-5.40); RED CELL DISTRIBUTION WIDTH 13.2 % (11.5-14.5); WHITE BLOOD COUNT 8.1 10^3/ul (4.8-10.8)
[2016-12-25 05:39] LABS: CALCIUM 8.1 mg/dl (8.4-10.2); CREATININE 0.64 mg/dl (0.44-1.00); POTASSIUM 3.7 mmol/L (3.5-5.1)
[2016-12-25 08:20] VITALS: BP 117/74; RESP 15
[2016-12-25 14:00] VITALS: BP 112/72; RESP 14
--- NOTE | 2016-12-25 14:20 | PN ---
Date/Time of Note Date/Time of Note DATE: 12/25/16 TIME: 14:16 Assessment/Plan VTE Prophylaxis VTE Prophylaxis Intervention: SCD's Lines/Catheters IV Catheter Type (from Nrs): Peripheral IV Urinary Cath still in place: No Assessment/Plan Assessment/Plan - Recalcitrant gastroesophageal reflux disease, not amendable to proton pump inhibitor therapy. - Status post laparoscopic fundoplication. Intra-abdominal implantation of biologic matrix mesh. - surgical recommendation. - Continue postoperative antibiotics. - Continue liquid diet for 2 weeks. - Dilaudid as needed for pain and Zofran as needed for nausea. - Neuropathy. Will resume gabapentin when patient is able to take p.o. Further recommendations based on clinical course. Plan of care discussed with Dr. Henriquez. Subjective 24 Hr Interval Summary Free Text/Dictation afebrile, c/o abdominal pain, better than yesterday,will be on liquid diet for 2 weeks- not tolerating liquids,surgery follows, dw staff Respiratory: no complaints Cardiovascular: no complaints Gastrointestinal: nausea Genitourinary: no complaints Musculoskeletal: no complaints Exam/Review of Systems Vital Signs Vitals Vital Signs Date Time Temp Pulse Resp B/P Pulse Ox O2 Delivery O2 Flow Rate FiO2 12/25/16 08:20 98.3 80 15 117/74 100 12/24/16 20:03 Room Air Intake and Output 12/24/16 12/24/16 12/25/16 14:59 22:59 06:59 Intake Total 100 ml 1600 ml 1300 ml Output Total 1100 ml Balance 100 ml 1600 ml 200 ml Exam Constitutional: alert, oriented, well developed Respiratory: clear to auscultation, normal air movement Gastrointestinal: other (surgical abdomen- dressings dry/intact), soft Musculoskeletal: nl extremities to inspection Extremities: normal pulses Neurological: nl mental status, nl speech Results Result Diagram: 12/25/16 0456 12/25/16 0455 Results 24 hrs Laboratory Tests Test 12/25/16 04:55 12/25/16 04:56 Sodium Level 140 Potassium Level 3.7 Chloride Level 105 Carbon Dioxide Level 30 Anion Gap 9 Blood Urea Nitrogen 2 L Creatinine 0.64 Glucose Level 100 Calcium Level 8.1 L White Blood Count 8.1 Red Blood Count 3.33 L Hemoglobin 10.3 L Hematocrit 30.0 L Mean Corpuscular Volume 90.1 Mean Corpuscular Hemoglobin 30.9 Mean Corpuscular Hemoglobin Concent 34.3 Red Cell Distribution Width 13.2 Platelet Count 232 Mean Platelet Volume 10.0 Neutrophils % 65.7 Lymphocytes % 19.4 Monocytes % 8.0 Eosinophils % 6.5 Basophils % 0.2 Nucleated Red Blood Cells % 0.0 Neutrophils # 5.3 Lymphocytes # 1.6 Monocytes # 0.6 Eosinophils # 0.5 Basophils # 0.0 Nucleated Red Blood Cells # 0.0 Medications Medications Current Medications Potassium Chloride/Dextrose/ Sod Cl (D5-1/2ns + KCl 20 Meq) 1,000 ml @ 100 mls/ hr Q10H IV Last administered on 12/25/16 01:08; Admin Dose 100 MLS/HR; Start 12/21/16 at 17:00 Ondansetron HCl (Zofran Inj) 4 mg Q6H PRN IV NAUSEA AND/OR VOMITING Last administered on 12/25/16 10:26; Admin Dose 4 MG; Start 12/21/16 at 21:30 Diphenhydramine HCl (Benadryl) 25 mg Q6H PRN IV ITCHING Last administered on 19:40; Admin Dose 25 MG; Start 12/22/16 at 07:00 Hydromorphone HCl 0.5 mg 0.5 mg Q4H PRN IV PAIN Last administered on 12/25/16 10:26; Admin Dose 0.5 MG; Start 12/22/16 at 08:00 Ampicillin Sodium/ Sulbactam Sodium (Unasyn 3gm/NS (Pmx)) 100 ml @ 100 mls/hr Q6 IVPB Last administered on 12/25/16 13:28; Admin Dose 100 MLS/HR; Start at 13:30; Stop 12/26/16 at 13:29 Acetaminophen (Tylenol Liquid) 650 mg Q6 PRN PO PAIN AND OR ELEVATED TEMP Last administered on 12/24/16 09:49; Admin Dose 650 MG; Start 12/23/16 at 15:00 MAGDIEL COTTRELL Dec 25, 2016 14:20
--- NOTE | 2016-12-25 16:38 | PN ---
DATE: 12/25/2016 SUBJECTIVE DATA: Status post Alyce fundoplication, postoperative day number 4. Complains of too much nausea and vomiting and also abdominal pain at the site of the trocars. OBJECTIVE DATA: GENERAL: Awake, alert, and oriented x3. VITAL SIGNS: Temperature 98.3, heart rate 80, respiration 16, blood pressure 107/74, saturation 100 percent room air. LABORATORY DATA: WBC 8,165 percent segmented, hemoglobin 10.3, hematocrit 30. Chemistry; sodium, potassium normal. BUN and creatinine normal. HEART: Regular. LUNGS: Clear. ABDOMEN: Soft, but tender around the incision lines. ASSESSMENT AND PLAN: The patient is 46-year-old female who underwent Alyce fundoplication, because of relaxed lower esophageal sphincter. Today's postoperative number 4. The patient is afebrile. He is on antibiotics. The patient is on clear liquid diet, but states that whatever she drinks, she throws up after a while and she has been nauseous all the time. She is on Zofran 4 mg IV q. 6 hours, but apparently does not help her that much. Abdomen is soft. PLAN: Continue current care. We may have to give the patient some Reglan to control the nausea. But for the time being, we will continue the current care. Dictated By: Roman Mayfield MD /eli/jaz /Document#: [id number]
[2016-12-25] MEDS: ACETAMINOPHEN 650MG/20.3ML CUP PO PRN (18:24)
[2016-12-25 19:30] VITALS: BP 123/78; RESP 18
[2016-12-26] MEDS: D5W-0.45 NACL + KCL 20 MEQ 1,000 ML IV SCH ×3 (00:10→13:31)
[2016-12-26] MEDS: AMPICILLIN/SULB 3 GM/NS (PMX) 100 ML IVPB SCH ×2 (00:10→06:23)
[2016-12-26 02:23] VITALS: BP 110/76; RESP 18
[2016-12-26] MEDS: HYDROmorphONE 1 MG/ML SYG IV PRN ×5 (02:45→21:47)
[2016-12-26 05:57] LABS: BASOPHILS % 0.2 % (0.0-2.0); EOSINOPHILS # 0.5 10^3/ul (0.0-0.5); EOSINOPHILS % 6.4 % (0.0-7.0); HEMATOCRIT 31.7 % (37.0-47.0); HEMOGLOBIN 11.1 g/dl (12.0-16.0); LYMPHOCYTES # 1.4 10^3/ul (0.8-2.9); LYMPHOCYTES % 17.3 % (15.0-51.0); MEAN CORPUSCULAR HEMOGLOBIN 31.3 pg (29.0-33.0); MEAN CORPUSCULAR VOLUME 89.3 fl (82.0-101.0); MEAN PLATELET VOLUME 9.9 fl (7.4-10.4); MONOCYTE # 0.8 10^3/ul (0.3-0.9); MONOCYTES % 9.1 % (0.0-11.0); NEUTROPHIL # 5.5 10^3/ul (1.6-7.5); NEUTROPHILS % 66.9 % (39.0-77.0); PLATELET COUNT 257 10^3/UL (140-415); RED BLOOD COUNT 3.55 10^6/ul (4.20-5.40); RED CELL DISTRIBUTION WIDTH 12.9 % (11.5-14.5); WHITE BLOOD COUNT 8.2 10^3/ul (4.8-10.8)
[2016-12-26 06:35] LABS: CALCIUM 8.6 mg/dl (8.4-10.2); CREATININE 0.68 mg/dl (0.44-1.00); POTASSIUM 3.7 mmol/L (3.5-5.1)
[2016-12-26 07:36] VITALS: BP 106/59; RESP 18
--- NOTE | 2016-12-26 07:40 | PN ---
DATE: 12/24/2016 SUBJECTIVE DATA: Postoperative day number 3, status post Alyce fundoplication, The patient complains of nausea and vomiting. OBJECTIVE: GENERAL: Awake, alert, oriented. VITAL SIGNS: Temperature 98.9, heart rate 70, respirations 18, . LABORATORY DATA: Chemistry is within normal limits. WBC 7800, with 61 percent neutrophils, hemoglobin 9.7 . ABDOMEN: Soft. EXTREMITIES: No calf tenderness. ASSESSMENT: Postoperative day number 3 for this 46-year-old female, who had Alyce fundoplication 3 days ago. She has been on liquid diet has had nausea and vomiting. Mild temperature. PLAN: Continue current care. Dictated By: Roman Mayfield MD /[email or web address]/kirill /Document#: [id number] MICA
--- NOTE | 2016-12-26 09:04 | PN ---
Date/Time of Note Date/Time of Note DATE: 12/26/16 TIME: 09:03 Assessment/Plan VTE Prophylaxis VTE Prophylaxis Intervention: SCD's Lines/Catheters IV Catheter Type (from Nrs): Peripheral IV Urinary Cath still in place: No Assessment/Plan Chief Complaint/Hosp Course s/p lap colette fundoplication for recalcitrant GERD Problems: Assessment/Plan some nausea and vomiting issues but slowly improving tolerating clear diet will keep for another day and evaluate as needed Subjective 24 Hr Interval Summary Free Text/Dictation still some nausea but improving decreased vomiting Exam/Review of Systems Vital Signs Vitals Vital Signs Date Time Temp Pulse Resp B/P Pulse Ox O2 Delivery O2 Flow Rate FiO2 12/26/16 07:36 98.1 82 18 106/59 99 12/24/16 20:03 Room Air Intake and Output 12/25/16 12/25/16 12/26/16 15:00 23:00 07:00 Intake Total 1100 ml 850 ml Output Total 950 ml Balance 1100 ml -100 ml Exam c/d/i Results Result Diagram: 12/26/16 0425 12/26/16 0425 Results 24 hrs Laboratory Tests Test 12/26/16 04:25 White Blood Count 8.2 Red Blood Count 3.55 L Hemoglobin 11.1 L Hematocrit 31.7 L Mean Corpuscular Volume 89.3 Mean Corpuscular Hemoglobin 31.3 Mean Corpuscular Hemoglobin Concent 35.0 Red Cell Distribution Width 12.9 Platelet Count 257 Mean Platelet Volume 9.9 Neutrophils % 66.9 Lymphocytes % 17.3 Monocytes % 9.1 Eosinophils % 6.4 Basophils % 0.2 Nucleated Red Blood Cells % 0.0 Neutrophils # 5.5 Lymphocytes # 1.4 Monocytes # 0.8 Eosinophils # 0.5 Basophils # 0.0 Nucleated Red Blood Cells # 0.0 Sodium Level 140 Potassium Level 3.7 Chloride Level 106 Carbon Dioxide Level 29 Anion Gap 9 Blood Urea Nitrogen 2 L Creatinine 0.68 Glucose Level 113 Calcium Level 8.6 Medications Medications Current Medications Potassium Chloride/Dextrose/ Sod Cl (D5-1/2ns + KCl 20 Meq) 1,000 ml @ 100 mls/ hr Q10H IV Last administered on 12/26/16t 00:10; Admin Dose 100 MLS/HR; Start 12/21/16 at 17:00 Diphenhydramine HCl (Benadryl) 25 mg Q6H PRN IV ITCHING Last administered on 19:40; Admin Dose 25 MG; Start 12/22/16 at 07:00 Hydromorphone HCl 0.5 mg 0.5 mg Q4H PRN IV PAIN Last administered on 12/26/16 06:28; Admin Dose 0.5 MG; Start 12/22/16 at 08:00 Ampicillin Sodium/ Sulbactam Sodium (Unasyn 3gm/NS (Pmx)) 100 ml @ 100 mls/hr Q6 IVPB Last administered on 12/26/16 06:23; Admin Dose 100 MLS/HR; Start at 13:30; Stop 12/26/16 at 13:29 Acetaminophen (Tylenol Liquid) 650 mg Q6 PRN PO PAIN AND OR ELEVATED TEMP Last administered on 12/25/16 18:24; Admin Dose 650 MG; Start 12/23/16 at 15:00 Ondansetron HCl (Zofran Inj) 4 mg Q4H PRN IV NAUSEA AND/OR VOMITING; Start at 17:00 Tuan VIRAMONTES Dec 26, 2016 09:04
[2016-12-26] MEDS: ONDANSETRON 4 MG INJ IV PRN ×3 (13:35→21:48)
--- NOTE | 2016-12-26 18:34 | PN ---
Date/Time of Note Date/Time of Note DATE: 12/26/16 TIME: 18:33 Assessment/Plan VTE Prophylaxis VTE Prophylaxis Intervention: SCD's Lines/Catheters IV Catheter Type (from Nrs): Peripheral IV Urinary Cath still in place: No Assessment/Plan Chief Complaint/Hosp Course Patient complains of nausea and low appetite, tolerates small amount of liquid diet, able to ambulate in the hallway. ASSESSMENT AND PLAN: - Recalcitrant gastroesophageal reflux disease, not amendable to proton pump inhibitor therapy. Status post laparoscopic fundoplication. Intra-abdominal implantation of biologic matrix mesh. Continue postoperative antibiotics. Continue liquid diet for 2 weeks. Follow-up surgical recommendation. Continue Dilaudid as needed for pain and Zofran as needed for nausea. - Neuropathy. Will resume gabapentin when patient is able to take p.o. Further recommendations based on clinical course. Plan of care discussed with Dr. Henriquez. Problems: Exam/Review of Systems Vital Signs Vitals Vital Signs Date Time Temp Pulse Resp B/P Pulse Ox O2 Delivery O2 Flow Rate FiO2 12/26/16 07:36 98.1 82 18 106/59 99 12/24/16 20:03 Room Air Intake and Output 12/25/16 12/25/16 12/26/16 15:00 23:00 07:00 Intake Total 1100 ml 850 ml Output Total 950 ml Balance 1100 ml -100 ml Exam Constitutional: alert Neck: supple Cardiovascular: nl pulses Gastrointestinal: non-tender, other (S/P surgery), soft Musculoskeletal: nl extremities to inspection Extremities: normal pulses Results Result Diagram: 12/26/16 0425 12/26/16 0425 Results 24 hrs Laboratory Tests Test 12/26/16 04:25 White Blood Count 8.2 Red Blood Count 3.55 L Hemoglobin 11.1 L Hematocrit 31.7 L Mean Corpuscular Volume 89.3 Mean Corpuscular Hemoglobin 31.3 Mean Corpuscular Hemoglobin Concent 35.0 Red Cell Distribution Width 12.9 Platelet Count 257 Mean Platelet Volume 9.9 Neutrophils % 66.9 Lymphocytes % 17.3 Monocytes % 9.1 Eosinophils % 6.4 Basophils % 0.2 Nucleated Red Blood Cells % 0.0 Neutrophils # 5.5 Lymphocytes # 1.4 Monocytes # 0.8 Eosinophils # 0.5 Basophils # 0.0 Nucleated Red Blood Cells # 0.0 Sodium Level 140 Potassium Level 3.7 Chloride Level 106 Carbon Dioxide Level 29 Anion Gap 9 Blood Urea Nitrogen 2 L Creatinine 0.68 Glucose Level 113 Calcium Level 8.6 Medications Medications Current Medications Potassium Chloride/Dextrose/ Sod Cl (D5-1/2ns + KCl 20 Meq) 1,000 ml @ 50 mls/ hr Q20H IV Last administered on 12/26/16 13:31; Admin Dose 50 MLS/HR; Start at 17:00 Diphenhydramine HCl (Benadryl) 25 mg Q6H PRN IV ITCHING Last administered on 19:40; Admin Dose 25 MG; Start 12/22/16 at 07:00 Hydromorphone HCl (Dilaudid) 0.5 mg Q4H PRN IV PAIN Last administered on 16:54; Admin Dose 0.5 MG; Start 12/22/16 at 08:00 Acetaminophen (Tylenol Liquid) 650 mg Q6 PRN PO PAIN AND OR ELEVATED TEMP Last administered on 12/25/16 18:24; Admin Dose 650 MG; Start 12/23/16 at 15:00 Ondansetron HCl (Zofran Inj) 4 mg Q4H PRN IV NAUSEA AND/OR VOMITING Last administered on 12/26/16 18:24; Admin Dose 4 MG; Start 12/25/16 at 17:00 REAL COKER Dec 26, 2016 18:34
[2016-12-26 19:37] VITALS: BP 111/72; RESP 18
[2016-12-27] MEDS: D5W-0.45 NACL + KCL 20 MEQ 1,000 ML IV SCH ×3 (00:57→20:41)
[2016-12-27 01:16] VITALS: BP 105/68; RESP 19
[2016-12-27] MEDS: HYDROmorphONE 1 MG/ML SYG IV PRN ×5 (04:09→23:01)
[2016-12-27 05:26] LABS: BASOPHILS % 0.3 % (0.0-2.0); EOSINOPHILS # 0.6 10^3/ul (0.0-0.5); EOSINOPHILS % 7.2 % (0.0-7.0); HEMATOCRIT 32.9 % (37.0-47.0); HEMOGLOBIN 11.2 g/dl (12.0-16.0); LYMPHOCYTES # 2.3 10^3/ul (0.8-2.9); LYMPHOCYTES % 30.7 % (15.0-51.0); MEAN CORPUSCULAR HEMOGLOBIN 30.5 pg (29.0-33.0); MEAN CORPUSCULAR VOLUME 89.6 fl (82.0-101.0); MONOCYTE # 0.7 10^3/ul (0.3-0.9); MONOCYTES % 9.3 % (0.0-11.0); NEUTROPHILS % 52.2 % (39.0-77.0); PLATELET COUNT 274 10^3/UL (140-415); RED BLOOD COUNT 3.67 10^6/ul (4.20-5.40); RED CELL DISTRIBUTION WIDTH 13.2 % (11.5-14.5); WHITE BLOOD COUNT 7.6 10^3/ul (4.8-10.8)
[2016-12-27 05:50] LABS: CALCIUM 8.9 mg/dl (8.4-10.2); CREATININE 0.71 mg/dl (0.44-1.00); POTASSIUM 3.8 mmol/L (3.5-5.1)
[2016-12-27 08:00] VITALS: BP 102/70; RESP 16
[2016-12-27] MEDS: ONDANSETRON 4 MG INJ IV PRN ×3 (08:56→19:05)
--- NOTE | 2016-12-27 13:21 | PN ---
Date/Time of Note Date/Time of Note DATE: 12/27/16 TIME: 13:18 Assessment/Plan VTE Prophylaxis VTE Prophylaxis Intervention: SCD's Lines/Catheters IV [facility] Type ([facility]): Peripheral IV Urinary Cath still in place: No Assessment/Plan Chief Complaint/Hosp Course Patient complains of diarrhea, will check stool for C-diff, pt tolerates liquid diet well. Intermittent nausea and pain is well controlled. ASSESSMENT AND PLAN: - Recalcitrant gastroesophageal reflux disease, not amendable to proton pump inhibitor therapy. Status post laparoscopic fundoplication, intra-abdominal implantation of biologic matrix mesh.Continue liquid diet for 2 weeks. Follow- up surgical recommendation. Continue Dilaudid as needed for pain and Zofran as needed for nausea. Further recommendations based on clinical course. Plan of care discussed with Dr. Henriquez. Problems: Exam/Review of Systems Vital Signs Vitals Vital Signs Date Time Temp Pulse Resp B/P Pulse Ox O2 Delivery O2 Flow Rate FiO2 12/27/16 08:00 97.7 66 16 102/70 98 12/24/16 20:03 Room Air Intake and Output 12/26/16 12/26/16 12/27/16 15:00 23:00 07:00 Intake Total 80 ml 400 ml 1800 ml Output Total 1100 ml Balance 80 ml 400 ml 700 ml Exam Constitutional: alert Neck: supple Cardiovascular: nl pulses Gastrointestinal: non-tender, other (S/P surgery), soft Musculoskeletal: nl extremities to inspection Extremities: normal pulses Results Result Diagram: 12/27/16 0429 12/27/16 0429 Results 24 hrs Laboratory Tests Test 12/27/16 04:29 White Blood Count 7.6 Red Blood Count 3.67 L Hemoglobin 11.2 L Hematocrit 32.9 L Mean Corpuscular Volume 89.6 Mean Corpuscular Hemoglobin 30.5 Mean Corpuscular Hemoglobin Concent 34.0 Red Cell Distribution Width 13.2 Platelet Count 274 Mean Platelet Volume 10.0 Neutrophils % 52.2 Lymphocytes % 30.7 Monocytes % 9.3 Eosinophils % 7.2 H Basophils % 0.3 Nucleated Red Blood Cells % 0.0 Neutrophils # 4.0 Lymphocytes # 2.3 Monocytes # 0.7 Eosinophils # 0.6 H Basophils # 0.0 Nucleated Red Blood Cells # 0.0 Sodium Level 141 Potassium Level 3.8 Chloride Level 107 Carbon Dioxide Level 27 Anion Gap 11 Blood Urea Nitrogen 2 L Creatinine 0.71 Glucose Level 97 Calcium Level 8.9 Medications Medications Current Medications Potassium Chloride/Dextrose/ Sod Cl (D5-1/2ns + KCl 20 Meq) 1,000 ml @ 50 mls/ hr Q20H IV Last administered on 12/27/16 09:39; Admin Dose 50 MLS/HR; Start at 17:00 Diphenhydramine HCl (Benadryl) 25 mg Q6H PRN IV ITCHING Last administered on 19:40; Admin Dose 25 MG; Start 12/22/16 at 07:00 Hydromorphone HCl (Dilaudid) 0.5 mg Q4H PRN IV PAIN Last administered on 08:56; Admin Dose 0.5 MG; Start 12/22/16 at 08:00 Acetaminophen (Tylenol Liquid) 650 mg Q6 PRN PO PAIN AND OR ELEVATED TEMP Last administered on 12/25/16 18:24; Admin Dose 650 MG; Start 12/23/16 at 15:00 Ondansetron HCl (Zofran Inj) 4 mg Q4H PRN IV NAUSEA AND/OR VOMITING Last administered on 12/27/16 08:56; Admin Dose 4 MG; Start 12/25/16 at 17:00 REAL COKER Dec 27, 2016 13:21
[2016-12-27 14:03] VITALS: BP 111/77; RESP 18
[2016-12-27 20:21] VITALS: BP 110/70; PULSE 68; RESP 18
[2016-12-28 02:00] VITALS: BP 95/68; RESP 18
[2016-12-28] MEDS: HYDROmorphONE 1 MG/ML SYG IV PRN ×5 (03:19→22:27)
[2016-12-28] MEDS: D5W-0.45 NACL + KCL 20 MEQ 1,000 ML IV SCH ×2 (03:19→19:00)
[2016-12-28 06:03] LABS: CALCIUM 8.7 mg/dl (8.4-10.2); CREATININE 0.68 mg/dl (0.44-1.00); POTASSIUM 3.4 mmol/L (3.5-5.1)
[2016-12-28 07:30] VITALS: BP 92/59; RESP 18
[2016-12-28] MEDS: metroNIDAZOLE 500 MG/NS (PMX) 100 ML IVPB SCH ×3 (09:33→22:13)
[2016-12-28] MEDS: ONDANSETRON 4 MG INJ IV PRN ×2 (09:45→14:20)
[2016-12-28] MEDS: VANCOMYCIN HCL 250 MG/5ML POSYG PO SCH ×2 (12:26→18:05)
--- NOTE | 2016-12-28 14:05 | PN ---
Date/Time of Note Date/Time of Note DATE: 12/28/16 TIME: 14:04 Assessment/Plan VTE Prophylaxis VTE Prophylaxis Intervention: SCD's Lines/Catheters IV Catheter Type (from [facility]): Peripheral IV Urinary Cath still in place: No Assessment/Plan Chief Complaint/Hosp Course s/p lap colette fundoplication for recalcitrant GERD Problems: Assessment/Plan no with c diff started on abx Subjective 24 Hr Interval Summary Free Text/Dictation having diarrhea, c diff positive Exam/Review of Systems Vital Signs Vitals Vital Signs Date Time Temp Pulse Resp B/P Pulse Ox O2 Delivery O2 Flow Rate FiO2 12/28/16 07:30 98.4 69 18 92/59 99 12/27/16 20:21 Room Air Intake and Output 12/27/16 12/27/16 12/28/16 15:00 23:00 07:00 Intake Total 100 ml 2000 ml 1450 ml Output Total 700 ml Balance 100 ml 2000 ml 750 ml Exam c/d/i Results Result Diagram: 12/27/16 0429 12/28/16 0440 Results 24 hrs Laboratory Tests Test 12/28/16 04:40 Sodium Level 139 Potassium Level 3.4 L Chloride Level 107 Carbon Dioxide Level 27 Anion Gap 8 Blood Urea Nitrogen 3 L Creatinine 0.68 Glucose Level 93 Calcium Level 8.7 Medications Medications Current Medications Potassium Chloride/Dextrose/ Sod Cl (D5-1/2ns + KCl 20 Meq) 1,000 ml @ 50 mls/ hr Q20H IV Last administered on 12/28/16 03:19; Admin Dose 50 MLS/HR; Start at 17:00 Diphenhydramine HCl (Benadryl) 25 mg Q6H PRN IV ITCHING Last administered on 19:40; Admin Dose 25 MG; Start 12/22/16 at 07:00 Hydromorphone HCl (Dilaudid) 0.5 mg Q4H PRN IV PAIN Last administered on 09:45; Admin Dose 0.5 MG; Start 12/22/16 at 08:00 Acetaminophen (Tylenol Liquid) 650 mg Q6 PRN PO PAIN AND OR ELEVATED TEMP Last administered on 12/25/16 18:24; Admin Dose 650 MG; Start 12/23/16 at 15:00 Ondansetron HCl 4 mg 4 mg Q4H PRN IV NAUSEA AND/OR VOMITING Last administered on 12/28/16 09:45; Admin Dose 4 MG; Start 12/25/16 at 17:00 Metronidazole (Flagyl 500 Mg (Pmx)) 100 ml @ 100 mls/hr Q8 IVPB Last administered on 12/28/16 09:33; Admin Dose 100 MLS/HR; Start 12/28/16 at 09:00 Vancomycin HCl (Vancomycin Oral Syringe) 250 mg Q6 PO Last administered on 12/28 12:26; Admin Dose 250 MG; Start 12/28/16 at 12:00 Tuan VIRAMONTES Dec 28, 2016 14:05
[2016-12-28] MEDS ORDERED: POTASSIUM CHLORIDE 20 MEQ POWDER FOR ORAL SOLN PO ONE (15:30)
--- NOTE | 2016-12-28 18:04 | PN ---
Date/Time of Note Date/Time of Note DATE: 12/28/16 TIME: 18:03 Assessment/Plan VTE Prophylaxis VTE Prophylaxis Intervention: SCD's Lines/Catheters IV C[facility]ter Type (from [facility]): Peripheral IV Urinary Cath still in place: No Assessment/Plan Chief Complaint/Hosp Course Patient's continues to have diarrhea, continued on IV and p.o. fluids. ASSESSMENT AND PLAN: - C. difficile colitis, continue PO vancomycin and contact isolation - Recalcitrant gastroesophageal reflux disease, not amendable to proton pump inhibitor therapy. Status post laparoscopic fundoplication, intra-abdominal implantation of biologic matrix mesh.Continue liquid diet for 2 weeks. Follow- up surgical recommendation. Continue Dilaudid as needed for pain and Zofran as needed for nausea. Further recommendations based on clinical course. Plan of care discussed with Dr. Henriquez. Problems: Exam/Review of Systems Vital Signs Vitals Vital Signs Date Time Temp Pulse Resp B/P Pulse Ox O2 Delivery O2 Flow Rate FiO2 12/28/16 07:30 98.4 69 18 92/59 99 12/27/16 20:21 Room Air Intake and Output 12/27/16 12/27/16 12/28/16 15:00 23:00 07:00 Intake Total 100 ml 2000 ml 1450 ml Output Total 700 ml Balance 100 ml 2000 ml 750 ml Exam Constitutional: alert Neck: supple Cardiovascular: nl pulses Gastrointestinal: non-tender, other (S/P surgery), soft Musculoskeletal: nl extremities to inspection Extremities: normal pulses Results Result Diagram: 12/27/16 0429 12/28/16 0440 Results 24 hrs Laboratory Tests Test 12/28/16 04:40 Sodium Level 139 Potassium Level 3.4 L Chloride Level 107 Carbon Dioxide Level 27 Anion Gap 8 Blood Urea Nitrogen 3 L Creatinine 0.68 Glucose Level 93 Calcium Level 8.7 Medications Medications Current Medications Potassium Chloride/Dextrose/ Sod Cl (D5-1/2ns + KCl 20 Meq) 1,000 ml @ 50 mls/ hr Q20H IV Last administered on 12/28/16 03:19; Admin Dose 50 MLS/HR; Start at 17:00 Diphenhydramine HCl (Benadryl) 25 mg Q6H PRN IV ITCHING Last administered on 19:40; Admin Dose 25 MG; Start 12/22/16 at 07:00 Hydromorphone HCl (Dilaudid) 0.5 mg Q4H PRN IV PAIN Last administered on 14:20; Admin Dose 0.5 MG; Start 12/22/16 at 08:00 Acetaminophen (Tylenol Liquid) 650 mg Q6 PRN PO PAIN AND OR ELEVATED TEMP Last administered on 12/25/16 18:24; Admin Dose 650 MG; Start 12/23/16 at 15:00 Ondansetron HCl 4 mg 4 mg Q4H PRN IV NAUSEA AND/OR VOMITING Last administered on 12/28/16 14:20; Admin Dose 4 MG; Start 12/25/16 at 17:00 Metronidazole (Flagyl 500 Mg (Pmx)) 100 ml @ 100 mls/hr Q8 IVPB Last administered on 12/28/16 14:10; Admin Dose 100 MLS/HR; Start 12/28/16 at 09:00 Vancomycin HCl (Vancomycin Oral Syringe) 250 mg Q6 PO Last administered on 12/28 12:26; Admin Dose 250 MG; Start 12/28/16 at 12:00 REAL COKER Dec 28, 2016 18:04
[2016-12-28 19:42] VITALS: BP 123/80; RESP 20
[2016-12-29] MEDS: VANCOMYCIN HCL 250 MG/5ML POSYG PO SCH ×4 (00:26→18:15)
[2016-12-29 05:25] LABS: BASOPHILS % 0.4 % (0.0-2.0); EOSINOPHILS # 0.7 10^3/ul (0.0-0.5); EOSINOPHILS % 6.2 % (0.0-7.0); HEMATOCRIT 32.1 % (37.0-47.0); LYMPHOCYTES % 17.9 % (15.0-51.0); MEAN CORPUSCULAR HEMOGLOBIN 30.4 pg (29.0-33.0); MEAN CORPUSCULAR HGB CONC 34.3 g/dl (32.0-37.0); MEAN CORPUSCULAR VOLUME 88.7 fl (82.0-101.0); MEAN PLATELET VOLUME 10.1 fl (7.4-10.4); MONOCYTE # 0.8 10^3/ul (0.3-0.9); MONOCYTES % 6.7 % (0.0-11.0); NEUTROPHIL # 7.6 10^3/ul (1.6-7.5); NEUTROPHILS % 68.5 % (39.0-77.0); PLATELET COUNT 290 10^3/UL (140-415); RED BLOOD COUNT 3.62 10^6/ul (4.20-5.40); RED CELL DISTRIBUTION WIDTH 13.3 % (11.5-14.5); WHITE BLOOD COUNT 11.2 10^3/ul (4.8-10.8)
[2016-12-29] MEDS: metroNIDAZOLE 500 MG/NS (PMX) 100 ML IVPB SCH ×3 (05:47→22:09)
[2016-12-29] MEDS: HYDROmorphONE 1 MG/ML SYG IV PRN ×5 (05:47→22:09)
[2016-12-29] MEDS: ONDANSETRON 4 MG INJ IV PRN ×5 (05:47→22:09)
[2016-12-29 05:54] LABS: CALCIUM 8.6 mg/dl (8.4-10.2); CREATININE 0.72 mg/dl (0.44-1.00); POTASSIUM 3.7 mmol/L (3.5-5.1)
[2016-12-29] MEDS: D5W-0.45 NACL + KCL 20 MEQ 1,000 ML IV SCH ×2 (06:55→12:57)
[2016-12-29 07:53] VITALS: BP 94/58; RESP 20
[2016-12-29 14:49] VITALS: BP 102/70; RESP 18
[2016-12-29] MEDS ORDERED: METOCLOPRAMIDE 10 MG INJ ONE (20:48)
[2016-12-29] MEDS: METOCLOPRAMIDE 10 MG INJ IV PRN (21:29)
[2016-12-29 21:38] VITALS: BP 115/68; RESP 20
--- NOTE | 2016-12-29 21:40 | PN ---
Date/Time of Note Date/Time of Note DATE: 12/29/16 TIME: 21:40 Assessment/Plan Lines/Catheters IV Catheter Type (from Nrsg): Peripheral IV Urinary Cath still in place: No Assessment/Plan Assessment/Plan - C. difficile colitis, continue PO vancomycin and contact isolation - Recalcitrant gastroesophageal reflux disease, not amendable to proton pump inhibitor therapy. Status post laparoscopic fundoplication, intra-abdominal implantation of biologic matrix mesh.Continue liquid diet for 2 weeks. Follow- up surgical recommendation. Continue Dilaudid as needed for pain and Zofran as needed for nausea. Further recommendations based on clinical course. Plan of care discussed with Dr. Henriquez. Subjective 24 Hr Interval Summary Free Text/Dictation Patient seen at 1330 Exam/Review of Systems Vital Signs Vitals Vital Signs Date Time Temp Pulse Resp B/P Pulse Ox O2 Delivery O2 Flow Rate FiO2 12/29/16 21:38 98.2 84 20 115/68 100 12/27/16 20:21 Room Air Intake and Output 12/28/16 12/28/16 12/29/16 15:00 23:00 07:00 Intake Total 100 ml 1200 ml 1720 ml Output Total 1200 ml Balance 100 ml 0 ml 1720 ml Results Result Diagram: 12/29/16 0428 12/29/16 0428 Results 24 hrs Laboratory Tests Test 12/29/16 04:28 White Blood Count 11.2 #H Red Blood Count 3.62 L Hemoglobin 11.0 L Hematocrit 32.1 L Mean Corpuscular Volume 88.7 Mean Corpuscular Hemoglobin 30.4 Mean Corpuscular Hemoglobin Concent 34.3 Red Cell Distribution Width 13.3 Platelet Count 290 Mean Platelet Volume 10.1 Neutrophils % 68.5 Lymphocytes % 17.9 Monocytes % 6.7 Eosinophils % 6.2 Basophils % 0.4 Nucleated Red Blood Cells % 0.0 Neutrophils # 7.6 H Lymphocytes # 2.0 Monocytes # 0.8 Eosinophils # 0.7 H Basophils # 0.0 Nucleated Red Blood Cells # 0.0 Sodium Level 140 Potassium Level 3.7 Chloride Level 107 Carbon Dioxide Level 26 Anion Gap 11 Blood Urea Nitrogen 2 L Creatinine 0.72 Glucose Level 91 Calcium Level 8.6 Medications Medications Current Medications Potassium Chloride/Dextrose/ Sod Cl (D5-1/2ns + KCl 20 Meq) 1,000 ml @ 50 mls/ hr Q20H IV Last administered on 12/29/16 06:55; Admin Dose 50 MLS/HR; Start at 17:00 Diphenhydramine HCl (Benadryl) 25 mg Q6H PRN IV ITCHING Last administered on 19:40; Admin Dose 25 MG; Start 12/22/16 at 07:00 Hydromorphone HCl (Dilaudid) 0.5 mg Q4H PRN IV PAIN Last administered on 18:15; Admin Dose 0.5 MG; Start 12/22/16 at 08:00 Acetaminophen (Tylenol Liquid) 650 mg Q6 PRN PO PAIN AND OR ELEVATED TEMP Last administered on 12/25/16 18:24; Admin Dose 650 MG; Start 12/23/16 at 15:00 Ondansetron HCl 4 mg 4 mg Q4H PRN IV NAUSEA AND/OR VOMITING Last administered on 12/29/16 18:14; Admin Dose 4 MG; Start 12/25/16 at 17:00 Metronidazole (Flagyl 500 Mg (Pmx)) 100 ml @ 100 mls/hr Q8 IVPB Last administered on 12/29/16 14:38; Admin Dose 100 MLS/HR; Start 12/28/16 at 09:00 Vancomycin HCl (Vancomycin Oral Syringe) 250 mg Q6 PO Last administered on 12/29 18:15; Admin Dose 250 MG; Start 12/28/16 at 12:00 Acetaminophen/ Hydrocodone Bitart ([place] (5/325)) 1 tab Q4H PRN PO PAIN LEVEL 4 -6; Start 12/29/16 at 17:00 Metoclopramide HCl (Reglan) 10 mg Q6H PRN IV NAUSEA Last administered on 21:29; Admin Dose 10 MG; Start 12/29/16 at 21:00 MAGDIEL COTTRELL Dec 29, 2016 21:40
[2016-12-30] MEDS: VANCOMYCIN HCL 250 MG/5ML POSYG PO SCH ×5 (00:16→23:53)
[2016-12-30] MEDS: HYDROmorphONE 1 MG/ML SYG IV PRN ×2 (02:16→23:54)
[2016-12-30] MEDS: ONDANSETRON 4 MG INJ IV PRN ×3 (02:16→21:34)
[2016-12-30] MEDS: D5W-0.45 NACL + KCL 20 MEQ 1,000 ML IV SCH (04:50)
[2016-12-30 05:16] LABS: BASOPHILS % 0.5 % (0.0-2.0); EOSINOPHILS # 0.7 10^3/ul (0.0-0.5); EOSINOPHILS % 8.2 % (0.0-7.0); HEMATOCRIT 30.7 % (37.0-47.0); HEMOGLOBIN 10.4 g/dl (12.0-16.0); LYMPHOCYTES # 2.4 10^3/ul (0.8-2.9); LYMPHOCYTES % 29.3 % (15.0-51.0); MEAN CORPUSCULAR HEMOGLOBIN 30.1 pg (29.0-33.0); MEAN CORPUSCULAR HGB CONC 33.9 g/dl (32.0-37.0); MEAN CORPUSCULAR VOLUME 88.7 fl (82.0-101.0); MONOCYTE # 0.7 10^3/ul (0.3-0.9); MONOCYTES % 8.8 % (0.0-11.0); NEUTROPHIL # 4.4 10^3/ul (1.6-7.5); NEUTROPHILS % 53.1 % (39.0-77.0); PLATELET COUNT 292 10^3/UL (140-415); RED BLOOD COUNT 3.46 10^6/ul (4.20-5.40); RED CELL DISTRIBUTION WIDTH 13.4 % (11.5-14.5); WHITE BLOOD COUNT 8.2 10^3/ul (4.8-10.8)
[2016-12-30 05:51] LABS: CALCIUM 8.6 mg/dl (8.4-10.2); CREATININE 0.8 mg/dl (0.44-1.00)
[2016-12-30] MEDS: METOCLOPRAMIDE 10 MG INJ IV PRN ×3 (06:08→23:54)
[2016-12-30] MEDS: metroNIDAZOLE 500 MG/NS (PMX) 100 ML IVPB SCH ×3 (06:08→21:26)
[2016-12-30] MEDS: HYDROCODONE/APAP (5/325) TAB PO PRN ×4 (06:08→21:34)
[2016-12-30 08:00] VITALS: BP 98/58; RESP 18
[2016-12-30 14:00] VITALS: BP 137/74; RESP 18
[2016-12-30 20:16] VITALS: BP 111/80; RESP 20
--- NOTE | 2016-12-30 20:35 | PN ---
Date/Time of Note Date/Time of Note DATE: 12/30/16 TIME: 20:30 Assessment/Plan VTE Prophylaxis VTE Prophylaxis Intervention: SCD's Lines/Catheters IV Catheter Type (from Nrs): Peripheral IV Urinary Cath still in place: No Assessment/Plan Chief Complaint/Hosp Course Patient still complaints of diarrhea however improved in frequency and consistency of BM. She is worried about contaminating her daughter and pets when going home. Anticipate discharge on p.o. Flagyl and Zofran as needed for nausea. ASSESSMENT AND PLAN: - C. difficile colitis, continue Flagyl and vancomycin. - Recalcitrant gastroesophageal reflux disease, not amendable to proton pump inhibitor therapy. Status post laparoscopic fundoplication, intra-abdominal implantation of biologic matrix mesh.Continue liquid diet for 2 weeks. Follow- up surgical recommendation. Continue Dilaudid as needed for pain and Zofran as needed for nausea. Further recommendations based on clinical course. Plan of care discussed with Dr. Henriquez. Problems: Exam/Review of Systems Vital Signs Vitals Vital Signs Date Time Temp Pulse Resp B/P Pulse Ox O2 Delivery O2 Flow Rate FiO2 12/30/16 20:16 98.3 83 20 111/80 96 12/27/16 20:21 Room Air Intake and Output 12/29/16 12/29/16 12/30/16 15:00 23:00 07:00 Intake Total 3030 ml 1100 ml Balance 3030 ml 1100 ml Exam Constitutional: alert Neck: supple Cardiovascular: nl pulses Gastrointestinal: non-tender, other (S/P surgery), soft Musculoskeletal: nl extremities to inspection Extremities: normal pulses Results Result Diagram: 12/30/16 0422 12/30/16 0422 Results 24 hrs Laboratory Tests Test 12/30/16 04:22 White Blood Count 8.2 # Red Blood Count 3.46 L Hemoglobin 10.4 L Hematocrit 30.7 L Mean Corpuscular Volume 88.7 Mean Corpuscular Hemoglobin 30.1 Mean Corpuscular Hemoglobin Concent 33.9 Red Cell Distribution Width 13.4 Platelet Count 292 Mean Platelet Volume 10.0 Neutrophils % 53.1 Lymphocytes % 29.3 Monocytes % 8.8 Eosinophils % 8.2 H Basophils % 0.5 Nucleated Red Blood Cells % 0.0 Neutrophils # 4.4 Lymphocytes # 2.4 Monocytes # 0.7 Eosinophils # 0.7 H Basophils # 0.0 Nucleated Red Blood Cells # 0.0 Sodium Level 138 Potassium Level 4.0 Chloride Level 106 Carbon Dioxide Level 27 Anion Gap 9 Blood Urea Nitrogen 2 L Creatinine 0.80 Glucose Level 96 Calcium Level 8.6 Medications Medications Current Medications Potassium Chloride/Dextrose/ Sod Cl (D5-1/2ns + KCl 20 Meq) 1,000 ml @ 50 mls/ hr Q20H IV Last administered on 12/30/16 04:50; Admin Dose 50 MLS/HR; Start at 17:00 Diphenhydramine HCl (Benadryl) 25 mg Q6H PRN IV ITCHING Last administered on 19:40; Admin Dose 25 MG; Start 12/22/16 at 07:00 Hydromorphone HCl (Dilaudid) 0.5 mg Q4H PRN IV PAIN Last administered on 02:16; Admin Dose 0.5 MG; Start 12/22/16 at 08:00 Acetaminophen (Tylenol Liquid) 650 mg Q6 PRN PO PAIN AND OR ELEVATED TEMP Last administered on 12/25/16 18:24; Admin Dose 650 MG; Start 12/23/16 at 15:00 Ondansetron HCl 4 mg 4 mg Q4H PRN IV NAUSEA AND/OR VOMITING Last administered on 12/30/16 14:31; Admin Dose 4 MG; Start 12/25/16 at 17:00 Metronidazole (Flagyl 500 Mg (Pmx)) 100 ml @ 100 mls/hr Q8 IVPB Last administered on 12/30/16 14:24; Admin Dose 100 MLS/HR; Start 12/28/16 at 09:00 Vancomycin HCl (Vancomycin Oral Syringe) 250 mg Q6 PO Last administered on 12/30 17:05; Admin Dose 250 MG; Start 12/28/16 at 12:00 Acetaminophen/ Hydrocodone Bitart ([place] (5/325)) 1 tab Q4H PRN PO PAIN LEVEL 4 -6 Last administered on 12/30/16 17:06; Admin Dose 1 TAB; Start 12/29/16 at 17: 00 Metoclopramide HCl (Reglan) 10 mg Q6H PRN IV NAUSEA Last administered on 17:06; Admin Dose 10 MG; Start 12/29/16 at 21:00 REAL COKER Dec 30, 2016 20:35
[2016-12-31 02:41] VITALS: BP 109/79; RESP 18
[2016-12-31] MEDS: D5W-0.45 NACL + KCL 20 MEQ 1,000 ML IV SCH (05:28)
[2016-12-31] MEDS: metroNIDAZOLE 500 MG/NS (PMX) 100 ML IVPB SCH ×3 (05:28→23:00)
[2016-12-31] MEDS: ONDANSETRON 4 MG INJ IV PRN ×4 (05:28→23:11)
[2016-12-31] MEDS: HYDROCODONE/APAP (5/325) TAB PO PRN ×3 (05:29→19:48)
[2016-12-31] MEDS: VANCOMYCIN HCL 250 MG/5ML POSYG PO SCH ×4 (05:30→23:31)
[2016-12-31 08:17] VITALS: BP 109/66; RESP 16
--- NOTE | 2016-12-31 12:28 | PN ---
Date/Time of Note Date/Time of Note DATE: 12/31/16 TIME: 12:28 Assessment/Plan VTE Prophylaxis VTE Prophylaxis Intervention: other Lines/Catheters IV [facility] Type (from [facility]): Peripheral IV Urinary Cath still in place: No Assessment/Plan Chief Complaint/Hosp Course - C. difficile colitis, continue Flagyl and vancomycin. - Recalcitrant gastroesophageal reflux disease, not amendable to proton pump inhibitor therapy. Status post laparoscopic fundoplication, intra-abdominal implantation of biologic matrix mesh.Continue liquid diet for 2 weeks. Follow- up surgical recommendation. Continue Dilaudid as needed for pain and Zofran as needed for nausea. Problems: Subjective 24 Hr Interval Summary Free Text/Dictation Patient still has some abdominal pain Exam/Review of Systems Vital Signs Vitals Vital Signs Date Time Temp Pulse Resp B/P Pulse Ox O2 Delivery O2 Flow Rate FiO2 12/31/16 08:17 98.1 70 16 109/66 96 12/27/16 20:21 Room Air Intake and Output 12/30/16 12/30/16 12/31/16 15:00 23:00 07:00 Intake Total 2000 ml 1550 ml Output Total 1150 ml Balance 2000 ml 400 ml Exam Constitutional: well developed Head: atraumatic, normocephalic Neck: supple Respiratory: clear to auscultation Cardiovascular: regular rate and rhythm Gastrointestinal: non-tender, soft Extremities: normal pulses Results Result Diagram: 12/30/162 12/30/16 042 Medications Medications Current Medications Potassium Chloride/Dextrose/ Sod Cl (D5-1/2ns + KCl 20 Meq) 1,000 ml @ 50 mls/ hr Q20H IV Last administered on 12/31/16 05:28; Admin Dose 50 MLS/HR; Start at 17:00 Diphenhydramine HCl (Benadryl) 25 mg Q6H PRN IV ITCHING Last administered on 19:40; Admin Dose 25 MG; Start 12/22/16 at 07:00 Hydromorphone HCl (Dilaudid) 0.5 mg Q4H PRN IV PAIN Last administered on 23:54; Admin Dose 0.5 MG; Start 12/22/16 at 08:00 Acetaminophen (Tylenol Liquid) 650 mg Q6 PRN PO PAIN AND OR ELEVATED TEMP Last administered on 12/25/16 18:24; Admin Dose 650 MG; Start 12/23/16 at 15:00 Ondansetron HCl 4 mg 4 mg Q4H PRN IV NAUSEA AND/OR VOMITING Last administered on 12/31/16 05:28; Admin Dose 4 MG; Start 12/25/16 at 17:00 Metronidazole (Flagyl 500 Mg (Pmx)) 100 ml @ 100 mls/hr Q8 IVPB Last administered on 12/31/16 05:28; Admin Dose 100 MLS/HR; Start 12/28/16 at 09:00 Vancomycin HCl (Vancomycin Oral Syringe) 250 mg Q6 PO Last administered on 12/31 12:19; Admin Dose 250 MG; Start 12/28/16 at 12:00 Acetaminophen/ Hydrocodone Bitart ([place] (5/325)) 1 tab Q4H PRN PO PAIN LEVEL 4 -6 Last administered on 12/31/16 11:39; Admin Dose 1 TAB; Start 12/29/16 at 17: 00 Metoclopramide HCl (Reglan) 10 mg Q6H PRN IV NAUSEA Last administered on 23:54; Admin Dose 10 MG; Start 12/29/16 at 21:00 TARA JOY Dec 31, 2016 12:28
[2016-12-31 14:00] VITALS: BP 102/65; RESP 15
[2016-12-31 19:30] VITALS: BP 122/75; RESP 18
[2017-01-01 00:04] VITALS: BP 124/80; RESP 18
[2017-01-01] MEDS: D5W-0.45 NACL + KCL 20 MEQ 1,000 ML IV SCH ×2 (00:57→05:08)
[2017-01-01] MEDS: ACETAMINOPHEN 650MG/20.3ML CUP PO PRN (05:07)
[2017-01-01] MEDS: VANCOMYCIN HCL 250 MG/5ML POSYG PO SCH ×3 (05:54→19:01)
[2017-01-01] MEDS: metroNIDAZOLE 500 MG/NS (PMX) 100 ML IVPB SCH ×3 (05:55→22:10)
[2017-01-01] MEDS: HYDROCODONE/APAP (5/325) TAB PO PRN ×3 (06:02→22:37)
[2017-01-01 08:06] VITALS: BP 100/67; RESP 20
--- NOTE | 2017-01-01 10:51 | PN ---
Date/Time of Note Date/Time of Note DATE: 01/01/17 TIME: 10:51 Assessment/Plan VTE Prophylaxis VTE Prophylaxis Intervention: other Lines/Catheters IV C[facility]ter Type (from [facility]): Peripheral IV Urinary Cath still in place: No Assessment/Plan Chief Complaint/Hosp Course - C. difficile colitis, continue Flagyl and vancomycin. - Recalcitrant gastroesophageal reflux disease, not amendable to proton pump inhibitor therapy. Status post laparoscopic fundoplication, intra-abdominal implantation of biologic matrix mesh.Continue liquid diet for 2 weeks. Follow- up surgical recommendation. Continue Dilaudid as needed for pain and Zofran as needed for nausea. Problems: Subjective 24 Hr Interval Summary Free Text/Dictation Patient has no complaints Exam/Review of Systems Vital Signs Vitals Vital Signs Date Time Temp Pulse Resp B/P Pulse Ox O2 Delivery O2 Flow Rate FiO2 01/01/17 08:06 98.1 72 20 100/67 97 Intake and Output 12/31/16 12/31/16 01/01/17 15:00 23:00 07:00 Intake Total 100 ml 700 ml 1650 ml Balance 100 ml 700 ml 1650 ml Exam Constitutional: well developed Head: atraumatic, normocephalic Neck: supple Respiratory: clear to auscultation Cardiovascular: regular rate and rhythm Gastrointestinal: non-tender, soft Extremities: normal pulses Results Result Diagram: 12/30/1642112/30/16421 Medications Medications Current Medications Potassium Chloride/Dextrose/ Sod Cl (D5-1/2ns + KCl 20 Meq) 1,000 ml @ 50 mls/ hr Q20H IV Last administered on 01/01/17 05:08; Admin Dose 50 MLS/HR; Start at 17:00 Diphenhydramine HCl (Benadryl) 25 mg Q6H PRN IV ITCHING Last administered on 19:40; Admin Dose 25 MG; Start 12/22/16 at 07:00 Hydromorphone HCl (Dilaudid) 0.5 mg Q4H PRN IV PAIN Last administered on 23:54; Admin Dose 0.5 MG; Start 12/22/16 at 08:00 Acetaminophen (Tylenol Liquid) 650 mg Q6 PRN PO PAIN AND OR ELEVATED TEMP Last administered on 01/01/17 05:07; Admin Dose 650 MG; Start 12/23/16 at 15:00 Ondansetron HCl 4 mg 4 mg Q4H PRN IV NAUSEA AND/OR VOMITING Last administered on 12/31/16 23:11; Admin Dose 4 MG; Start 12/25/16 at 17:00 Metronidazole (Flagyl 500 Mg (Pmx)) 100 ml @ 100 mls/hr Q8 IVPB Last administered on 01/01/17 05:55; Admin Dose 100 MLS/HR; Start 12/28/16 at 09:00 Vancomycin HCl (Vancomycin Oral Syringe) 250 mg Q6 PO Last administered on 01/01 05:54; Admin Dose 250 MG; Start 12/28/16 at 12:00 Acetaminophen/ Hydrocodone Bitart ([place] (5/325)) 1 tab Q4H PRN PO PAIN LEVEL 4 -6 Last administered on 01/01/17 06:02; Admin Dose 1 TAB; Start 12/29/16 at 17: 00 Metoclopramide HCl (Reglan) 10 mg Q6H PRN IV NAUSEA Last administered on 23:54; Admin Dose 10 MG; Start 12/29/16 at 21:00 TARA JOY Jan 01, 2017 10:51
[2017-01-01] MEDS: ONDANSETRON 4 MG INJ IV PRN ×2 (11:01→16:13)
[2017-01-01] MEDS: HYDROmorphONE 1 MG/ML SYG IV PRN (13:36)
[2017-01-01 15:10] VITALS: BP 114/71; RESP 18
[2017-01-01 19:50] VITALS: BP 128/80; RESP 20
[2017-01-02] MEDS: VANCOMYCIN HCL 250 MG/5ML POSYG PO SCH ×4 (00:44→17:09)
[2017-01-02 02:33] VITALS: BP 116/67; RESP 18
[2017-01-02] MEDS: D5W-0.45 NACL + KCL 20 MEQ 1,000 ML IV SCH ×2 (03:30→16:57)
[2017-01-02] MEDS: metroNIDAZOLE 500 MG/NS (PMX) 100 ML IVPB SCH ×2 (06:00→06:32)
[2017-01-02] MEDS: metroNIDAZOLE 500 MG TAB PO SCH ×2 (07:04→13:29)
[2017-01-02 08:06] VITALS: BP 116/73; RESP 19
--- NOTE | 2017-01-02 09:09 | PN ---
Date/Time of Note Date/Time of Note DATE: 01/02/17 TIME: 09:08 Assessment/Plan VTE Prophylaxis VTE Prophylaxis Intervention: SCD's Lines/Catheters IV C[facility]ter Type (from [facility]): Peripheral IV Urinary Cath still in place: No Assessment/Plan Chief Complaint/Hosp Course s/p lap colette fundoplication for recalcitrant GERD Problems: Assessment/Plan was treated for c diff no further diarrhea ok to dc home today Subjective 24 Hr Interval Summary Free Text/Dictation c diff being treated, diarrhea has resolved Exam/Review of Systems Vital Signs Vitals Vital Signs Date Time Temp Pulse Resp B/P Pulse Ox O2 Delivery O2 Flow Rate FiO2 01/02/17 08:06 98.1 83 19 116/73 98 Intake and Output 01/01/17 01/01/17 01/02/17 15:00 23:00 07:00 Intake Total 100 ml 1350 ml 1545 ml Balance 100 ml 1350 ml 1545 ml Exam c/d/i Results Result Diagram: 12/30/16 0422 12/30/16 0422 Results 24 hrs Laboratory Tests Test 01/02/17 05:45 Lab Scanned Report LAB Medications Medications Current Medications Potassium Chloride/Dextrose/ Sod Cl (D5-1/2ns + KCl 20 Meq) 1,000 ml @ 50 mls/ hr Q20H IV Last administered on 01/02/17 03:30; Admin Dose 50 MLS/HR; Start at 17:00 Diphenhydramine HCl (Benadryl) 25 mg Q6H PRN IV ITCHING Last administered on 19:40; Admin Dose 25 MG; Start 12/22/16 at 07:00 Hydromorphone HCl (Dilaudid) 0.5 mg Q4H PRN IV PAIN Last administered on 13:36; Admin Dose 0.5 MG; Start 12/22/16 at 08:00 Acetaminophen (Tylenol Liquid) 650 mg Q6 PRN PO PAIN AND OR ELEVATED TEMP Last administered on 01/01/17 05:07; Admin Dose 650 MG; Start 12/23/16 at 15:00 Ondansetron HCl (Zofran Inj) 4 mg Q4H PRN IV NAUSEA AND/OR VOMITING Last administered on 01/01/17 16:13; Admin Dose 4 MG; Start 12/25/16 at 17:00 Vancomycin HCl (Vancomycin Oral Syringe) 250 mg Q6 PO Last administered on 01/02 06:22; Admin Dose 250 MG; Start 12/28/16 at 12:00 Acetaminophen/ Hydrocodone Bitart ([place] (5/325)) 1 tab Q4H PRN PO PAIN LEVEL 4 -6 Last administered on 01/01/17 22:37; Admin Dose 1 TAB; Start 12/29/16 at 17: 00 Metoclopramide HCl (Reglan) 10 mg Q6H PRN IV NAUSEA Last administered on 23:54; Admin Dose 10 MG; Start 12/29/16 at 21:00 Metronidazole (Flagyl) 500 mg Q8 PO Last administered on 01/02/17 07:04; Admin Dose 500 MG; Start 01/02/17 at 07:00 Tuan VIRAMONTES Jan 02, 2017 09:09
[2017-01-02] MEDS: HYDROCODONE/APAP (5/325) TAB PO PRN ×3 (11:05→15:46)
[2017-01-02] MEDS ORDERED: METR500T PO (16:57)
[2017-01-02] MEDS ORDERED: HYDR-906 PO (16:57)
[2017-01-02] MEDS ORDERED: ONDA4TAB14 PO (16:57)
--- NOTE | 2017-01-02 19:50 | DS ---
Date/Time of Note Date/Time of Note DATE: 01/02/17 TIME: 19:48 Discharge Summary Admission/Discharge Info Admit Date/Time Dec 21, 2016 at 10:21 Discharge Date/Time Jan 02, 2017 at 18:20 Patient Condition: Stable Hx of Present Illness The patient is a 46-year-old female with persistent GERD, not responding to medical therapy. 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 The patient also with history of prior laparoscopic diaphragmatic surgery repair. The patient was evaluated by Dr. Aguilera in general surgery consultation, and patient was admitted to the hospital and underwent laparoscopic fundoplication with mesh repair. Postoperatively, the patient experienced significant pain, and patient will be admitted for further evaluation and management. Hospital Course - C. difficile colitis, continue Flagyl and vancomycin. Diarrhea resolved patient was discharged with prescription for Flagyl for 7 more days - Recalcitrant gastroesophageal reflux disease, not amendable to proton pump inhibitor therapy. Status post laparoscopic fundoplication, intra-abdominal implantation of biologic matrix mesh.Continue liquid diet for 2 weeks. Follow- up surgical recommendation. Continue Dilaudid as needed for pain and Zofran as needed for nausea. Home Meds Active Scripts Hydrocodone/Acetaminophen ([place] 5-325 Tablet) 1 Each Tablet, 1 EACH PO Q4 for PAIN, #30 TAB Prov:REAL COKER 01/02/17 Ondansetron (Ondansetron Odt) 4 Mg Tab.rapdis, 4 MG PO Q6H Y for NAUSEA AND/OR VOMITING, #30 TAB Prov:REAL COKER 01/02/17 Metronidazole* (Flagyl*) 500 Mg Tablet, 500 MG PO Q8 for 7 Days, TAB Prov:REAL COKER 01/02/17 Reported Medications Norethindrone-E.estradiol-Iron ([place] 1-20 Tablet) 1 Each Tablet, 1 EACH PO DAILY, TAB 12/21/16 Discontinued Reported Medications Meloxicam* (Mobic*) 15 Mg Tablet, 15 MG PO DAILY, #30 TAB 12/21/16 Gabapentin* (Gabapentin*) 600 Mg Tablet, 600 MG PO BID, #60 TAB 12/21/16 Pantoprazole* (Protonix*) 40 Mg Tablet., 40 MG PO BID, TAB 12/21/16 Follow-up Plan Follow-up with Dr. Aguilera tomorrow in the office Primary Care Provider [facility] Time spent on discharge: > 30 minutes Pending Labs Laboratory Tests Test 01/02/17 05:45 Lab Scanned Report [id number] REAL COKER Jan 02, 2017 19:50
== END 2017-01-02 18:20 | disposition home or self-care (01) | DRG 327 ==
LOC: REC 10:21 → EDSTATUS 15:00 → MS1 19:40
PROVIDERS: ADMIT Internal Medicine; ATTEND Surgery
PROC: 0DU Gastrointestinal System, Supplement (ICD-10-PCS; 2016-12-21)
PROC: 0DNW4ZZ Release Peritoneum, Percutaneous Endoscopic Approach (ICD-10-PCS; 2016-12-21)
PROC: 0DV44ZZ Restriction of Esophagogastric Junction, Percutaneous Endoscopic Approach (ICD-10-PCS; principal; 2016-12-21 13:00)
DX: K21.9 Gastro-esophageal reflux disease without esophagitis (principal); A04.72 Enterocolitis due to Clostridium difficile, not specified as recurrent; K22.8 Other specified diseases of esophagus; G62.9 Polyneuropathy, unspecified; K66.0 Peritoneal adhesions (postprocedural) (postinfection)
CPT/HCPCS: 74240; 80048; 80053; 85025; 87075; 87086; J0295; J0690; J1170; J1200; J2175; J2270; J2405; J2710; J2765; J3010; J3480; J7999; Q4166

== ENCOUNTER 2017-07-11 05:44 | Day surgery (SDC) | END 2017-07-11 11:45 | disposition home or self-care (01) ==

== ENCOUNTER 2017-09-13 11:27 | Day surgery (SDC) | END 2017-09-13 14:49 | disposition home or self-care (01) ==

== ENCOUNTER 2017-11-30 07:08 | Day surgery (SDC) | END 2017-11-30 11:05 | disposition home or self-care (01) ==